=== PATIENT | female | born 1955 | race American Indian/Alaskan Native ===

== ENCOUNTER 2017-07-08 09:46 | Inpatient (IN) | payer OTHER ==
--- NOTE | 2017-07-08 10:21 | XRay Report ---
CHEST XRAY, 2 VIEWS: History: Shortness of breath. Findings: There is mild cardiomegaly. Pulmonary vessels are within normal limits. The lungs are clear and fully expanded. No infiltrate, pleural effusion or pneumothorax. Normal thoracic cage. IMPRESSION: Cardiomegaly. No significant change since 04/08/17.
[2017-07-08 10:22] LABS: Basophils # (Auto) 0.1 K/mm3 (0.0-0.1); Basophils % (Auto) 0.8 % (0.0-1.8); Eosinophils # (Auto) 0.1 K/mm3 (0.0-0.4); Eosinophils % (Auto) 0.9 % (0.0-4.3); Lymphocytes # (Auto) 2.5 K/mm3 (1.2-5.4); Lymphocytes % (Auto) 32.8 % (13.4-35.0); Mean Corpuscular HGB Conc 31 % (30-34); Mean Corpuscular Volume 82 fl (79-97); Monocytes % (Auto) 12.6 % (0.0-7.3); Platelet Count 293 K/mm3 (140-440); Red Cell Distribution Width 18.6 % (13.2-15.2)
[2017-07-08 10:26] LABS: Hematocrit 41.7 % (30.3-42.9); Hemoglobin 12.8 gm/dl (10.1-14.3); Mean Corpuscular Hemoglobin 25 pg (28-32)
[2017-07-08 10:29] LABS: BUN/Creatinine Ratio 29; Blood Urea Nitrogen 20 mg/dL (7-17); Calcium 9.6 mg/dL (8.4-10.2); Hemolysis Index 23
--- NOTE | 2017-07-08 13:17 | Emergency Department Report ---
Blank Doc - Documentation Documentation: Patient is a 61-year-old black female with past medical history of congestive heart failure is presenting with dyspnea with exertion for the past week. Patient states she was in another emergency Department several days ago was given Lasix and felt better on discharge but is now unable to walk without shortness of breath. Patient states even talking to tire her out. Patient is on 20 mg Lasix daily. On brief physical exam patient has some coarse breath sounds bilateral bases there is no lower extremity edema present. The patient will be moved to the main ED for continued care.
--- NOTE | 2017-07-08 13:20 | Emergency Department Report ---
ED Shortness of Breath HPI - General Chief Complaint: Dyspnea/Respdistress Stated Complaint: SOB Time Seen by Provider: 07/08/17 13:07 Source: patient Mode of arrival: Ambulatory Limitations: No Limitations - History of Present Illness Initial Comments: Patient is 61 years old female history of congestive heart failure with ejection fraction of 20%. Patient presented with shortness of breath for the last few days. Patient stated that she went to [facility] ER and she was given IV Lasix and was sent home when her symptoms are not improving. Patient was recently discharged from this hospital when she had a cardiac catheterization which showed normal coronary arteries. Patient currently denying any chest pain, fever. MD Complaint: shortness of breath -: Gradual Severity: moderate Known History Of: congestive heart failure Associated Symptoms: cough - Related Data Home Medications Medication Instructions Recorded Confirmed Last Taken Ergocalciferol [Vitamin D2] 1 cap PO QWEEK 04/09/17 04/09/17 Unknown Ferrous Sulfate [Feosol 325 MG tab] 325 mg PO BID 04/09/17 04/09/17 Unknown Gabapentin [Neurontin] 100 mg PO BID 04/09/17 04/09/17 Unknown ISOSORBIDE MONOnitrate [Imdur ER] 30 mg PO DAILY 04/09/17 04/09/17 Unknown Ibuprofen [Motrin 600 MG tab] 600 mg PO TID PRN 04/09/17 04/09/17 Unknown Metformin HCl 500 mg PO BID 04/09/17 04/09/17 Unknown Simvastatin [Zocor TAB] 20 mg PO QHS 04/09/17 04/09/17 Unknown amLODIPine [Norvasc] 5 mg PO DAILY 04/09/17 04/09/17 Unknown Previous Rx's Medication Instructions Recorded Last Taken Type Carvedilol [Coreg] 3.125 mg PO BID #60 tablet 04/10/17 Unknown Rx Furosemide [Lasix TAB] 20 mg PO QDAY #30 tablet 04/10/17 Unknown Rx Lisinopril [Zestril TAB] 20 mg PO QDAY #30 tablet 04/10/17 Unknown Rx Allergies Allergy/AdvReac Type Severity Reaction Status Date / Time No Known Allergies Allergy Verified 07/08/17 09:48 ED Review of Systems ROS: Stated complaint: SOB Other details as noted in HPI Comment: All other systems reviewed and negative Constitutional: denies: chills, diaphoresis Respiratory: orthopnea, shortness of breath, SOB with exertion, SOB at rest. denies: stridor, wheezing Cardiovascular: dyspnea on exertion, orthopnea, edema, paroxysmal nocturnal dyspnea. denies: chest pain, palpitations, syncope Gastrointestinal: denies: abdominal pain, nausea, vomiting, diarrhea, constipation, hematemesis, melena, hematochezia Neurological: denies: headache, weakness, numbness, paresthesias ED Past Medical Hx - Past Medical History Hx Hypertension: Yes Hx Congestive Heart Failure: Yes Hx Diabetes: Yes Additional medical history: PNEUMONIA, DECREASED HEARING IN RIGHT EAR - Surgical History Additional Surgical History: HYSTERECTOMY - Social History Smoking Status: Never Smoker Substance Use Type: None - Medications Home Medications: Home Medications Medication Instructions Recorded Confirmed Last Taken Type Ergocalciferol [Vitamin D2] 1 cap PO QWEEK 04/09/17 04/09/17 Unknown History Ferrous Sulfate [Feosol 325 MG tab] 325 mg PO BID 04/09/17 04/09/17 Unknown History Gabapentin [Neurontin] 100 mg PO BID 04/09/17 04/09/17 Unknown History ISOSORBIDE MONOnitrate [Imdur ER] 30 mg PO DAILY 04/09/17 04/09/17 Unknown History Ibuprofen [Motrin 600 MG tab] 600 mg PO TID PRN 04/09/17 04/09/17 Unknown History Metformin HCl 500 mg PO BID 04/09/17 04/09/17 Unknown History Simvastatin [Zocor TAB] 20 mg PO QHS 04/09/17 04/09/17 Unknown History amLODIPine [Norvasc] 5 mg PO DAILY 04/09/17 04/09/17 Unknown History Carvedilol [Coreg] 3.125 mg PO BID #60 tablet 04/10/17 Unknown Rx Furosemide [Lasix TAB] 20 mg PO QDAY #30 tablet 04/10/17 Unknown Rx Lisinopril [Zestril TAB] 20 mg PO QDAY #30 tablet 04/10/17 Unknown Rx ED Physical Exam - General Limitations: No Limitations General appearance: alert, anxious - Head Head exam: Present: atraumatic, normocephalic, normal inspection - Eye Eye exam: Present: normal appearance. Absent: PERRL, EOMI - ENT ENT exam: Present: normal exam, normal orophraynx, mucous membranes moist - Neck Neck exam: Present: normal inspection, full ROM. Absent: tenderness, meningismus, lymphadenopathy, thyromegaly - Respiratory Respiratory exam: Present: rales, decreased breath sounds. Absent: respiratory distress, wheezes, rhonchi, stridor, prolonged expiratory - Cardiovascular Cardiovascular Exam: Present: regular rate, normal rhythm, normal heart sounds - GI/Abdominal GI/Abdominal exam: Present: soft, normal bowel sounds. Absent: distended, tenderness, guarding, rebound, rigid, organomegaly, mass, bruit, pulsatile mass , hernia - Extremities Exam Extremities exam: Present: normal inspection, full ROM, normal capillary refill , pedal edema - Back Exam Back exam: Present: normal inspection, full ROM. Absent: tenderness, CVA tenderness (R), CVA tenderness (L), muscle spasm, paraspinal tenderness, vertebral tenderness, rash noted - Neurological Exam Neurological exam: Present: alert, oriented X3, CN II-XII intact, normal gait - Skin Skin exam: Present: warm, intact, normal color ED Course Vital Signs 07/08/17 09:48 Temperature 97.3 F L Pulse Rate 93 H Respiratory 18 Rate Blood Pressure 133/98 O2 Sat by Pulse 100 Oximetry ED Medical Decision Making - Lab Data Result diagrams: 07/08/17 10:06 07/08/17 10:00 - EKG Data -: EKG Interpreted by [facility] EKG shows normal: sinus rhythm Rate: tachycardia - EKG Data Interpretation: no acute changes - Radiology Data Radiology results: report reviewed Referring Physician: CHAD TRENT Patient Name: SAMMY LUEVANO Date of : 1955 Sex: Female Report Date: 2017-07-08 Report Status: Finalized Findings [facility] [address] [place] [address] XRay Report Signed Patient: SAMMY LUEVANO MR#: [id number] : 1955 Acct:[id number] Age/Sex: 61 / F ADM Date: 07/08/17 Loc: ED Attending Dr: Ordering Physician: CHAD TRENT MD Date of Service: 07/08/17 Procedure(s): XR chest routine 2V Accession Number(s): [id number] cc: ED MD TWAN Fluoro Time In Minutes: CHEST XRAY, 2 VIEWS: History: Shortness of breath. Findings: There is mild cardiomegaly. Pulmonary vessels are within normal limits. The lungs are clear and fully expanded. No infiltrate, pleural effusion or pneumothorax. Normal thoracic cage. IMPRESSION: Cardiomegaly. No significant change since 04/08/17. Transcribed By: TTR Dictated By: RODRI GIRALDO JR, MD Electronically Authenticated By: RODRI GIRALDO JR, MD Signed Date/Time: 07/08/17 1012 DD/ 1012 TD/TT: 07/08/17 1012 - Medical Decision Making discuss with Dr Hernández, he agreed to admit to his service. Critical care attestation.: If time is entered above; I have spent that time in minutes in the direct care of this critically ill patient, excluding procedure time. ED Disposition Clinical Impression: CHF exacerbation, Shortness of breath Disposition: -09 OP ADMIT IP TO THIS HOSP Is pt being admited?: Yes Condition: Stable Referrals: TYLER BRISENO MD [Primary Care Provider] - 3-5 Days
[2017-07-08] MEDS ORDERED: LASIX IV ONE (13:21)
--- NOTE | 2017-07-08 13:37 | History and Physical Report ---
History of Present Illness Chief complaint: Its hard to breathe History of present illness: 61 YO Female with Systolic CHF with EF of 20%, HTN, DM, presents to ED for evaluation. Pt states that she has experienced shortness of breath for the last 3 days with worsening symptoms over the past 1 day. Pt acknowledges Orthopnea and PND. Pt denies fever, chills, CP, Palpitations, NVD, Syncope, BRBPR, unintentional weight loss, night sweats, prolonged travel/immobility, unilateral leg swelling, calf pain, hemoptysis, productive cough, skin rash, or recent ill contacts. Pt seen and evaluated in ED and found to have acute hypoxemic respiratory failure, as well as CHF decompensation. Cardiology consulted in ED. Past History Past Medical History: diabetes, heart failure, hypertension Past Surgical History: hysterectomy Social history: single. denies: smoking, alcohol abuse, prescription drug abuse Family history: diabetes, hypertension Medications and Allergies Allergies Allergy/AdvReac Type Severity Reaction Status Date / Time No Known Allergies Allergy Verified 07/08/17 09:48 Home Medications Medication Instructions Recorded Confirmed Last Taken Type Ergocalciferol [Vitamin D2] 1 cap PO QWEEK 04/09/17 07/08/17 07/08/17 History Ferrous Sulfate [Feosol 325 MG tab] 325 mg PO BID 04/09/17 07/08/17 07/08/17 History Gabapentin [Neurontin] 100 mg PO BID 04/09/17 07/08/17 07/08/17 History Ibuprofen [Motrin 600 MG tab] 600 mg PO TID PRN 04/09/17 07/08/17 07/08/17 History Metformin HCl 500 mg PO BID 04/09/17 07/08/17 07/08/17 History Simvastatin [Zocor TAB] 20 mg PO QHS 04/09/17 07/08/17 07/08/17 History Furosemide [Lasix TAB] 20 mg PO QDAY #30 tablet 04/10/17 07/08/17 07/08/17 Rx Lisinopril [Zestril TAB] 20 mg PO QDAY #30 tablet 04/10/17 07/08/17 07/08/17 Rx Review of Systems Constitutional: no weight loss, no weight gain, no fever, no chills Ears, nose, mouth and throat: no ear pain, no ear discharge, no tinnitis, no decreased hearing, no nose pain, no nasal congestion Cardiovascular: orthopnea, shortness of breath, paroxysmal nocturnal dyspnea, no chest pain, no palpitations, no rapid/irregular heart beat, no edema Gastrointestinal: no nausea, no vomiting, no diarrhea, no constipation Genitourinary Female: no pelvic pain, no flank pain, no menorrhagia, no dysuria Rectal: no pain, no incontinence, no bleeding Musculoskeletal: no neck stiffness, no neck pain, no shooting arm pain, no arm numbness/tingling, no low back pain Integumentary: no rash, no pruritis, no redness, no sores Neurological: no transient paralysis, no paralysis, no weakness, no parathesias , no numbness, no tingling Psychiatric: no anxiety, no memory loss, no change in sleep habits, no sleep disturbances, no insomnia, no hypersomnia, no change in appetite Endocrine: no cold intolerance, no heat intolerance, no polyphagia, no excessive thirst, no polydipsia, no polyuria, no nocturia Hematologic/Lymphatic: no easy bruising, no easy bleeding, no lymphadenopathy, no lymphedema Allergic/Immunologic: no urticaria, no allergic rhinitis, no wheezing Exam - Constitutional Vitals: Temp Pulse Resp BP Pulse Ox 97.3 F L 93 H 18 133/98 100 07/08/17 09:48 07/08/17 09:48 07/08/17 09:48 07/08/17 09:48 07/08/17 09:48 General appearance: Present: mild distress - EENT Eyes: Present: PERRL ENT: hearing intact, clear oral mucosa - Neck Neck: Present: supple, normal ROM - Respiratory Respiratory effort: labored Respiratory: bilateral: diminished, wheezing - Cardiovascular Heart Sounds: Present: S1 & S2. Absent: rub, click - Extremities Extremities: pulses symmetrical, No edema Extremity abnormal: edema Peripheral Pulses: within normal limits - Abdominal General gastrointestinal: Present: soft, non-tender, non-distended, normal bowel sounds Female genitourinary: Present: normal - Integumentary Integumentary: Present: clear, warm, dry - Musculoskeletal Musculoskeletal: gait normal, strength equal bilaterally - Psychiatric Psychiatric: appropriate mood/affect, intact judgment & insight - Neurologic Neurologic: CNII-XII intact, moves all extremities Results - Labs CBC & Chem 7: 07/08/17 10:06 07/08/17 10:00 Labs: Abnormal lab results 07/08/17 07/08/17 07/08/17 Range/Units 10:00 10:06 10:06 RBC 5.10 H (3.65-5.03) M/mm3 MCH 25 L (28-32) pg RDW 18.6 H (13.2-15.2) % [place] % (Auto) 12.6 H (0.0-7.3) % [place] # 1.0 H (0.0-0.8) K/mm3 BUN 20 H (7-17) mg/dL Glucose 212 H (65-100) mg/dL NT-Pro-B Natriuret Pep 1779 H (0-900) pg/mL Assessment and Plan - Patient Problems (1) Acute respiratory failure Current Visit: Yes Status: Acute Qualifiers: Respiratory failure complication: hypoxia Qualified Code(s): J96.01 - Acute respiratory failure with hypoxia Plan to address problem: Supplemental oxygen, nebulizer therapy, NIPPV as clinically indicated, (2) CHF exacerbation Current Visit: Yes Status: Acute Qualifiers: Heart failure type: systolic Qualified Code(s): I50.23 - Acute on chronic systolic (congestive) heart failure Plan to address problem: Strict I/O, monitor uop q shift, afterload reduction, diuresis, daily weight, supplemental oxygen, cardiology consulted in ED (3) Diabetes Current Visit: Yes Status: Acute Plan to address problem: AD diet, insulin, accu check (4) HTN (hypertension) Current Visit: Yes Status: Acute Qualifiers: Hypertension type: essential hypertension Qualified Code(s): I10 - Essential (primary) hypertension Plan to address problem: Monitor BP q shift, continue prehospital medication (5) DVT prophylaxis Current Visit: Yes Status: Acute Plan to address problem: SCD to BLE while in bed
[2017-07-08] MEDS ORDERED: TYLENOL PO PRN (13:38)
[2017-07-08] MEDS ORDERED: PROVENTIL IH PRN (13:38)
[2017-07-08] MEDS ORDERED: SODIUM CHLORIDE FLUSH SYRINGE 10 ML IV PRN (13:38)
[2017-07-08] MEDS ORDERED: ZOFRAN IV PRN (13:38)
--- NOTE | 2017-07-08 14:15 | Progress Note ---
Assessment and Plan Shortness of breath Hx of [facility] 03/2017: no significant CAD, ejection fraction 20-25% Diabetes Hypertension Recommendations: Continue medical management for her nonischemic cardiomyopathy. Subjective Date of service: 07/08/17 Interval history: Patient went for a routing visit at [facility]. She complained of shortness of breath, ongoing for several weeks now with minimal exertion. Patient was sent to the ED for further evaluation. Patient denies chest pain and palpitations. There is no lower extremity edema. Patient denies fever. A chest xray reports a cardiomegaly but no interstitial edema. Objective Vital Signs Temp Pulse Resp BP Pulse Ox 07/08/17 09:48 97.3 F L 93 H 18 133/98 100 - Physical Examination General: No Apparent Distress HEENT: Positive: PERRL Cardiac: Positive: Reg Rate and Rhythm Lungs: Positive: Decreased Breath Sounds Neuro: Positive: Grossly Intact Extremities: Absent: edema - Labs and Meds CBC 07/08/17 Range/Units 10:06 WBC 7.7 (4.5-11.0) K/mm3 RBC 5.10 H (3.65-5.03) M/mm3 Hgb 12.8 (10.1-14.3) gm/dl Hct 41.7 (30.3-42.9) % Plt Count 293 (140-440) K/mm3 Lymph # 2.5 (1.2-5.4) K/mm3 [place] # 1.0 H (0.0-0.8) K/mm3 Eos # 0.1 (0.0-0.4) K/mm3 Baso # 0.1 (0.0-0.1) K/mm3 Comprehensive Metabolic Panel 07/08/17 Range/Units 10:00 Sodium 138 (137-145) mmol/L Potassium 3.8 (3.6-5.0) mmol/L Chloride 100.8 (98-107) mmol/L Carbon Dioxide 22 (22-30) mmol/L BUN 20 H (7-17) mg/dL Creatinine 0.7 (0.7-1.2) mg/dL Glucose 212 H (65-100) mg/dL Calcium 9.6 (8.4-10.2) mg/dL
[2017-07-08] MEDS ORDERED: MILK OF MAGNESIA PO PRN (16:06)
[2017-07-08] MEDS: LASIX IV SCH (17:45)
[2017-07-08] MEDS ORDERED: VITAMIN D2 PO SCH (18:35)
[2017-07-08] MEDS ORDERED: NON-FORMULARY (Simvastatin 20 MG) PO SCH (22:00)
[2017-07-08] MEDS: HumaLOG SUB-Q SCH (22:45)
[2017-07-08] MEDS: NEURONTIN PO SCH (22:46)
[2017-07-08] MEDS: PRAVACHOL PO SCH (22:46)
[2017-07-08] MEDS: FEOSOL PO SCH (22:46)
[2017-07-08] MEDS: COREG PO SCH (22:46)
[2017-07-08] MEDS: COLACE PO SCH (22:46)
[2017-07-08] MEDS: SODIUM CHLORIDE FLUSH SYRINGE 10 ML IV SCH (22:47)
[2017-07-09] MEDS: LASIX IV SCH ×2 (05:51→17:38)
--- NOTE | 2017-07-09 08:13 | Progress Note ---
Assessment and Plan Shortness of breath x 2 months [facility]: no significant CAD, ejection fraction 20-25% Recurrent admissions for CHF (this is her 4th admission this year) despite compliance with meds ? insufficient diuresis due to low dose of diuretics at home (she takes 20 mg furosemide once a day) Atrial fibrillation on warfarin INR checked as outpatient Diabetes Hypertension Recommendations: Continue medical management for her nonischemic cardiomyopathy. Check INR Start digoxin 0.125 mg po once a day Upon discharge, increase lasix dose to 40 mg po daily Subjective Date of service: 07/09/17 Principal diagnosis: CHF Interval history: Patient continues to be short of breath She is confused about her meds Objective Vital Signs Temp Pulse Pulse Resp BP BP Pulse Ox 07/09/17 05:03 87 94 07/09/17 05:02 97.8 F 87 20 122/88 95 07/08/17 23:54 98.4 F 92 H 20 135/92 95 07/08/17 22:46 93 H 135/95 07/08/17 22:35 92 H 20 95 07/08/17 22:00 97 07/08/17 19:46 94 H 93 07/08/17 19:45 98.3 F 93 H 18 135/95 95 07/08/17 19:41 98.3 F 92 H 18 135/95 99 07/08/17 19:22 92 H 07/08/17 16:21 97.3 F L 89 20 125/76 100 07/08/17 16:00 97.3 F L 89 20 125/76 98 07/08/17 15:15 113/72 99 07/08/17 15:10 87 22 128/84 98 07/08/17 15:00 94 H 18 113/72 07/08/17 14:50 88 28 H 113/72 98 07/08/17 14:40 87 19 138/90 100 07/08/17 14:30 90 16 138/90 99 07/08/17 14:20 87 22 98 07/08/17 14:10 90 13 125/90 99 07/08/17 14:00 91 H 29 H 98 07/08/17 13:50 98.1 F 92 H 19 130/90 99 07/08/17 13:46 93 H 17 99 07/08/17 09:48 97.3 F L 93 H 18 133/98 100 - Physical Examination General: No Apparent Distress HEENT: Positive: PERRL Neck: Positive: neck supple Cardiac: Positive: irregularly irregular Lungs: Positive: Normal Exam Neuro: Positive: Grossly Intact Extremities: Absent: edema - Labs and Meds CBC 07/08/17 Range/Units 10:06 WBC 7.7 (4.5-11.0) K/mm3 RBC 5.10 H (3.65-5.03) M/mm3 Hgb 12.8 (10.1-14.3) gm/dl Hct 41.7 (30.3-42.9) % Plt Count 293 (140-440) K/mm3 Lymph # 2.5 (1.2-5.4) K/mm3 [place] # 1.0 H (0.0-0.8) K/mm3 Eos # 0.1 (0.0-0.4) K/mm3 Baso # 0.1 (0.0-0.1) K/mm3 Comprehensive Metabolic Panel 07/08/17 Range/Units 10:00 Sodium 138 (137-145) mmol/L Potassium 3.8 (3.6-5.0) mmol/L Chloride 100.8 (98-107) mmol/L Carbon Dioxide 22 (22-30) mmol/L BUN 20 H (7-17) mg/dL Creatinine 0.7 (0.7-1.2) mg/dL Glucose 212 H (65-100) mg/dL Calcium 9.6 (8.4-10.2) mg/dL
[2017-07-09] MEDS: HumaLOG SUB-Q SCH ×4 (08:53→23:27)
[2017-07-09 09:10] LABS: INR 1.58 (0.87-1.13)
[2017-07-09] MEDS: COLACE PO SCH ×2 (10:29→23:27)
[2017-07-09] MEDS: FEOSOL PO SCH ×2 (10:29→21:36)
[2017-07-09] MEDS: NEURONTIN PO SCH ×2 (10:29→21:37)
[2017-07-09] MEDS: IMDUR PO SCH (10:34)
[2017-07-09] MEDS: COREG PO SCH ×2 (10:34→23:01)
[2017-07-09] MEDS: NORVASC PO SCH (10:34)
[2017-07-09] MEDS: SODIUM CHLORIDE FLUSH SYRINGE 10 ML IV SCH ×2 (10:36→21:39)
[2017-07-09] MEDS: ZESTRIL PO SCH (11:38)
[2017-07-09] MEDS ORDERED: PNEUMOVAX 23 IM ONE (12:00)
--- NOTE | 2017-07-09 12:23 | Progress Note ---
Assessment and Plan Assessment and plan: Acute hypoxic respiratory failure. Etiology secondary to systolic heart failure exacerbation. Continue O2 and BiPAP as clinically indicated. Acute systolic heart failure exacerbation. [facility] 03/2017: no significant CAD, ejection fraction 20-25%. Continue medical management for her nonischemic cardiomyopathy. Cardiology started digoxin 0.125 mg daily and Lasix increased to 40 mg daily Nonischemic cardiomyopathy. As above. Atrial fibrillation. Continue anticoagulation with Coumadin. Diabetes mellitus type 2. Continue Accu-Cheks and sliding scale insulin. Hypertension. Continue antihypertensive medications. History Interval history: No new complaints overnight. Hospitalist Physical - Constitutional Vitals: Temp Pulse Resp BP Pulse Ox 97.5 F L 85 18 115/75 97 07/09/17 08:01 07/09/17 10:34 07/09/17 08:01 07/09/17 11:38 07/09/17 09:47 General appearance: Present: no acute distress - EENT Eyes: Present: PERRL, EOM intact ENT: hearing intact, clear oral mucosa, dentition normal - Neck Neck: Present: supple, normal ROM - Respiratory Respiratory effort: normal Respiratory: bilateral: CTA - Cardiovascular Rhythm: regular Heart Sounds: Present: S1 & S2. Absent: gallop, rub - Extremities Extremities: no ischemia, No edema, Full ROM - Abdominal General gastrointestinal: soft, non-tender, non-distended, normal bowel sounds - Integumentary Integumentary: Present: clear, warm, dry - Neurologic Neurologic: CNII-XII intact, moves all extremities Results - Labs CBC & Chem 7: 07/08/17 10:06 07/08/17 10:00 Labs: Laboratory Last Values WBC 7.7 K/mm3 (4.5-11.0) 07/08/17 10:06 RBC 5.10 M/mm3 (3.65-5.03) H 07/08/17 10:06 Hgb 12.8 gm/dl (10.1-14.3) 07/08/17 10:06 Hct 41.7 % (30.3-42.9) 07/08/17 10:06 MCV 82 fl (79-97) 07/08/17 10:06 MCH 25 pg (28-32) L 07/08/17 10:06 MCHC 31 % (30-34) 07/08/17 10:06 RDW 18.6 % (13.2-15.2) H 07/08/17 10:06 Plt Count 293 K/mm3 (140-440) 07/08/17 10:06 Lymph % (Auto) 32.8 % (13.4-35.0) 07/08/17 10:06 [place] % (Auto) 12.6 % (0.0-7.3) H 07/08/17 10:06 Eos % (Auto) 0.9 % (0.0-4.3) 07/08/17 10:06 Baso % (Auto) 0.8 % (0.0-1.8) 07/08/17 10:06 Lymph # 2.5 K/mm3 (1.2-5.4) 07/08/17 10:06 [place] # 1.0 K/mm3 (0.0-0.8) H 07/08/17 10:06 Eos # 0.1 K/mm3 (0.0-0.4) 07/08/17 10:06 Baso # 0.1 K/mm3 (0.0-0.1) 07/08/17 10:06 Seg Neutrophils % 52.9 % (40.0-70.0) 07/08/17 10:06 Seg Neutrophils # 4.1 K/mm3 (1.8-7.7) 07/08/17 10:06 PT 19.8 Sec. (12.2-14.9) H 07/09/17 08:40 INR 1.58 (0.87-1.13) H 07/09/17 08:40 Sodium 138 mmol/L (137-145) 07/08/17 10:00 Potassium 3.8 mmol/L (3.6-5.0) 07/08/17 10:00 Chloride 100.8 mmol/L (98-107) 07/08/17 10:00 Carbon Dioxide 22 mmol/L (22-30) 07/08/17 10:00 Anion Gap 19 mmol/L 07/08/17 10:00 BUN 20 mg/dL (7-17) H 07/08/17 10:00 Creatinine 0.7 mg/dL (0.7-1.2) 07/08/17 10:00 Estimated GFR > 60 ml/min 07/08/17 10:00 BUN/Creatinine Ratio 29 % 07/08/17 10:00 Glucose 212 mg/dL (65-100) H 07/08/17 10:00 POC Glucose 140 (70-105) H 07/09/17 05:13 Calcium 9.6 mg/dL (8.4-10.2) 07/08/17 10:00 Troponin T < 0.010 ng/mL (0.00-0.029) 07/08/17 13:32 NT-Pro-B Natriuret Pep 1779 pg/mL (0-900) H 07/08/17 10:06
[2017-07-09] MEDS: LANOXIN PO SCH (17:39)
[2017-07-09] MEDS: PRAVACHOL PO SCH (21:37)
[2017-07-10] MEDS: LASIX IV SCH ×2 (05:55→18:05)
[2017-07-10 06:58] LABS: Basophils # (Auto) 0.1 K/mm3 (0.0-0.1); Basophils % (Auto) 0.7 % (0.0-1.8); Eosinophils # (Auto) 0.2 K/mm3 (0.0-0.4); Eosinophils % (Auto) 2.7 % (0.0-4.3); Hemoglobin 12.2 gm/dl (10.1-14.3); Lymphocytes % (Auto) 24.2 % (13.4-35.0); Mean Corpuscular HGB Conc 31 % (30-34); Mean Corpuscular Volume 82 fl (79-97); Monocytes # (Auto) 0.7 K/mm3 (0.0-0.8); Monocytes % (Auto) 9.1 % (0.0-7.3); Platelet Count 322 K/mm3 (140-440); Red Blood Count 4.79 M/mm3 (3.65-5.03); Red Cell Distribution Width 18.9 % (13.2-15.2)
[2017-07-10 07:00] LABS: Mean Corpuscular Hemoglobin 26 pg (28-32)
[2017-07-10 07:22] LABS: BUN/Creatinine Ratio 30; Blood Urea Nitrogen 18 mg/dL (7-17); Calcium 8.6 mg/dL (8.4-10.2); Hemolysis Index 11
[2017-07-10] MEDS: HumaLOG SUB-Q SCH ×4 (08:38→21:26)
[2017-07-10] MEDS: ZESTRIL PO SCH (09:03)
[2017-07-10] MEDS: COLACE PO SCH ×2 (09:04→21:25)
[2017-07-10] MEDS: COREG PO SCH ×2 (09:04→21:25)
[2017-07-10] MEDS: NEURONTIN PO SCH ×2 (09:04→21:25)
[2017-07-10] MEDS: IMDUR PO SCH (09:04)
[2017-07-10] MEDS: SODIUM CHLORIDE FLUSH SYRINGE 10 ML IV SCH ×2 (09:05→21:25)
[2017-07-10] MEDS: FEOSOL PO SCH ×2 (09:05→21:26)
[2017-07-10] MEDS: NORVASC PO SCH (09:13)
--- NOTE | 2017-07-10 11:19 | Progress Note ---
Assessment and Plan Shortness of breath Hx of [facility] 03/2017: no significant CAD, ejection fraction 20-25% Diabetes Hypertension Paroxysmal Atrial fibrillation on Warfarin as an outpatient on digoxin for suppression Recommendations: Continue medical management for her nonischemic cardiomyopathy. Continue medical therapy for paroxysmal afib. Restart warfarin therapy. Upon discharge, increase lasix dose to 40 mg po daily. Patient advised to keep her appt as previously scheduled. Subjective Date of service: 07/10/17 Principal diagnosis: CHF Interval history: Patient reports shortness of breath at times. Complains of not sleeping. Sinus rhythm on telemetry. Objective Vital Signs Temp Pulse Resp BP BP Pulse Ox 07/10/17 09:13 78 127/81 07/10/17 09:04 78 127/81 07/10/17 09:03 78 127/81 07/10/17 04:26 62 93 07/10/17 04:25 97.7 F 83 20 100/65 97 07/10/17 03:44 79 07/09/17 23:18 79 92 07/09/17 23:17 97.8 F 82 20 92/56 93 07/09/17 23:01 80 96/61 07/09/17 21:29 98 07/09/17 19:16 97.6 F 80 96/61 97 07/09/17 19:15 97.6 F 78 20 96/61 98 07/09/17 17:39 75 171/75 07/09/17 11:38 115/75 - Physical Examination General: No Apparent Distress HEENT: Positive: PERRL Cardiac: Positive: Reg Rate and Rhythm Lungs: Positive: Decreased Breath Sounds Neuro: Positive: Grossly Intact Extremities: Absent: edema - Labs and Meds CBC 07/10/17 Range/Units 06:14 WBC 8.1 (4.5-11.0) K/mm3 RBC 4.79 (3.65-5.03) M/mm3 Hgb 12.2 (10.1-14.3) gm/dl Hct 39.0 (30.3-42.9) % Plt Count 322 (140-440) K/mm3 Lymph # 2.0 (1.2-5.4) K/mm3 [place] # 0.7 (0.0-0.8) K/mm3 Eos # 0.2 (0.0-0.4) K/mm3 Baso # 0.1 (0.0-0.1) K/mm3 Comprehensive Metabolic Panel 07/10/17 Range/Units 06:14 Sodium 139 (137-145) mmol/L Potassium 3.5 L (3.6-5.0) mmol/L Chloride 96.3 L (98-107) mmol/L Carbon Dioxide 28 (22-30) mmol/L BUN 18 H (7-17) mg/dL Creatinine 0.6 L (0.7-1.2) mg/dL Glucose 184 H (65-100) mg/dL Calcium 8.6 (8.4-10.2) mg/dL
--- NOTE | 2017-07-10 11:30 | Progress Note ---
Assessment and Plan Assessment and plan: Acute hypoxic respiratory failure. Etiology secondary to systolic heart failure exacerbation. Continue O2 and BiPAP as clinically indicated. Orthostasis. Etiology likely secondary to increase and change in medications. I will discussed with cardiology medication profile. We will discontinue ImDur and change metoprolol to Coreg Acute systolic heart failure exacerbation. [facility] 03/2017: no significant CAD, ejection fraction 20-25%. Continue medical management for her nonischemic cardiomyopathy. Cardiology started digoxin 0.125 mg daily and Lasix increased to 40 mg daily Nonischemic cardiomyopathy. As above. Atrial fibrillation. Continue anticoagulation with Coumadin. Diabetes mellitus type 2. Continue Accu-Cheks and sliding scale insulin. Hypertension. Continue antihypertensive medications. Disposition. Discharge in a.m. History Interval history: No new complaints overnight. Patient complains of orthostasis this morning. She reports dizziness with ambulating in her room. Hospitalist Physical - Constitutional Vitals: Temp Pulse Resp BP Pulse Ox 97.7 F 78 20 127/81 93 07/10/17 04:25 07/10/17 09:13 07/10/17 04:25 07/10/17 09:13 07/10/17 04:26 General appearance: Present: no acute distress - EENT Eyes: Present: PERRL, EOM intact ENT: hearing intact, clear oral mucosa, dentition normal - Neck Neck: Present: supple, normal ROM - Respiratory Respiratory effort: normal Respiratory: bilateral: CTA - Cardiovascular Rhythm: regular Heart Sounds: Present: S1 & S2. Absent: gallop, rub - Extremities Extremities: no ischemia, No edema, Full ROM - Abdominal General gastrointestinal: soft, non-tender, non-distended, normal bowel sounds - Integumentary Integumentary: Present: clear, warm, dry - Neurologic Neurologic: CNII-XII intact, moves all extremities Results - Labs CBC & Chem 7: 07/10/17 06:14 07/10/17 06:14 Labs: Laboratory Last Values WBC 8.1 K/mm3 (4.5-11.0) 07/10/17 06:14 RBC 4.79 M/mm3 (3.65-5.03) 07/10/17 06:14 Hgb 12.2 gm/dl (10.1-14.3) 07/10/17 06:14 Hct 39.0 % (30.3-42.9) 07/10/17 06:14 MCV 82 fl (79-97) 07/10/17 06:14 MCH 26 pg (28-32) L 07/10/17 06:14 MCHC 31 % (30-34) 07/10/17 06:14 RDW 18.9 % (13.2-15.2) H 07/10/17 06:14 Plt Count 322 K/mm3 (140-440) 07/10/17 06:14 Lymph % (Auto) 24.2 % (13.4-35.0) 07/10/17 06:14 Lynn % (Auto) 9.1 % (0.0-7.3) H 07/10/17 06:14 Eos % (Auto) 2.7 % (0.0-4.3) 07/10/17 06:14 Baso % (Auto) 0.7 % (0.0-1.8) 07/10/17 06:14 Lymph # 2.0 K/mm3 (1.2-5.4) 07/10/17 06:14 Lynn # 0.7 K/mm3 (0.0-0.8) 07/10/17 06:14 Eos # 0.2 K/mm3 (0.0-0.4) 07/10/17 06:14 Baso # 0.1 K/mm3 (0.0-0.1) 07/10/17 06:14 Seg Neutrophils % 63.3 % (40.0-70.0) 07/10/17 06:14 Seg Neutrophils # 5.1 K/mm3 (1.8-7.7) 07/10/17 06:14 PT 19.8 Sec. (12.2-14.9) H 07/09/17 08:40 INR 1.58 (0.87-1.13) H 07/09/17 08:40 Sodium 139 mmol/L (137-145) 07/10/17 06:14 Potassium 3.5 mmol/L (3.6-5.0) L 07/10/17 06:14 Chloride 96.3 mmol/L (98-107) L 07/10/17 06:14 Carbon Dioxide 28 mmol/L (22-30) 07/10/17 06:14 Anion Gap 18 mmol/L 07/10/17 06:14 BUN 18 mg/dL (7-17) H 07/10/17 06:14 Creatinine 0.6 mg/dL (0.7-1.2) L 07/10/17 06:14 Estimated GFR > 60 ml/min 07/10/17 06:14 BUN/Creatinine Ratio 30 % 07/10/17 06:14 Glucose 184 mg/dL (65-100) H 07/10/17 06:14 POC Glucose 195 (70-105) H 07/10/17 06:18 Calcium 8.6 mg/dL (8.4-10.2) 07/10/17 06:14 Troponin T < 0.010 ng/mL (0.00-0.029) 07/08/17 13:32 NT-Pro-B Natriuret Pep 1779 pg/mL (0-900) H 07/08/17 10:06
[2017-07-10] MEDS ORDERED: PNEUMOVAX 23 IM ONE (12:00)
[2017-07-10] MEDS: LANOXIN PO SCH (18:11)
[2017-07-10] MEDS: PRAVACHOL PO SCH (21:25)
[2017-07-11] MEDS: LASIX IV SCH (05:45)
[2017-07-11 07:54] LABS: Basophils # (Auto) 0.1 K/mm3 (0.0-0.1); Eosinophils % (Auto) 2.4 % (0.0-4.3); Monocytes % (Auto) 11.5 % (0.0-7.3)
--- NOTE | 2017-07-11 07:55 | Discharge Summary ---
Providers - Providers Date of Admission: 07/08/17 13:39 Date of discharge: 07/11/17 Attending physician: DESTINEE HERNANDEZ 07/08/17 13:43 Consult to Physician [CONS] Routine Comment: JACQUE NOTIFIED [id number] Consulting Provider: LISET SIBLEY Physician Instructions: Reason For Exam: chf Primary care physician: TYLER BRISENO Hospitalization Reason for admission: chf Condition: Stable Hospital course: 61 YO Female with Systolic CHF with EF of 20%, HTN, DM who presented to ED for complaints of shortness of breath for the last 3 days [employer] and with worsening symptoms over the past 1 day [employer]. Pt acknowledged Orthopnea and PND. The patient was admitted with a diagnosis of acute hypoxemic respiratory failure and acute systolic heart failure exacerbation. The patient was seen by cardiology in consultation and had medication adjustment with addition of Imdur , digoxin and increased Lasix from 20 mg daily to 40 mg daily. After the change in medication, patient experience orthostasis during the hospital stay and had indoor discontinued. Cardiology recommended patient be discharged on Coreg, digoxin and Lasix. Follow-up as an outpatient. Dedicated discharge time 32 minutes. Disposition: DC-01 TO HOME OR SELFCARE Time spent for discharge: 32 - Discharge Diagnoses (1) Acute respiratory failure Status: Acute Qualifiers: Respiratory failure complication: hypoxia Qualified Code(s): J96.01 - Acute respiratory failure with hypoxia (2) CHF exacerbation Status: Acute Qualifiers: Heart failure type: systolic Qualified Code(s): I50.23 - Acute on chronic systolic (congestive) heart failure (3) Diabetes Status: Acute (4) HTN (hypertension) Status: Acute Qualifiers: Hypertension type: essential hypertension Qualified Code(s): I10 - Essential (primary) hypertension Core Measure Documentation - Palliative Care Palliative Care/ Comfort Measures: Not Applicable - Core Measures Any of the following diagnoses?: heart failure - Heart Failure Discharge Requirements MARCUS/ARB for LVSD if EF <40%: Yes Beta duke at discharge: Yes Exam - Constitutional Vitals: Temp Pulse Resp BP Pulse Ox 98.3 F 85 18 105/72 99 07/11/17 04:36 07/11/17 04:36 07/11/17 04:36 07/11/17 04:36 07/11/17 04:36 General appearance: Present: no acute distress, well-nourished - EENT Eyes: Present: PERRL ENT: hearing intact, clear oral mucosa - Neck Neck: Present: supple, normal ROM - Respiratory Respiratory effort: normal Respiratory: bilateral: CTA - Cardiovascular Heart Sounds: Present: S1 & S2. Absent: rub, click - Extremities Extremities: pulses symmetrical, No edema Peripheral Pulses: within normal limits - Abdominal General gastrointestinal: Present: soft, non-tender, non-distended, normal bowel sounds Female genitourinary: Present: normal - Integumentary Integumentary: Present: clear, warm, dry - Musculoskeletal Musculoskeletal: gait normal, strength equal bilaterally - Psychiatric Psychiatric: appropriate mood/affect, intact judgment & insight - Neurologic Neurologic: CNII-XII intact, moves all extremities Plan Activity: no restrictions Weight Bearing Status: Full Weight Bearing Diet: low fat, low cholesterol, low salt, diabetic Follow up with: TYLER BRISENO MD [Primary Care Provider] - 3-5 Days LISET SIBLEY MD [Staff Physician] - 7 Days Prescriptions: amLODIPine [Norvasc] 5 mg PO DAILY #30 tablet Carvedilol [Coreg] 3.125 mg PO BID #60 tablet Digoxin [Lanoxin] 0.125 mg PO DAILY@1700 #30 tablet Ferrous Sulfate [Feosol 325 MG tab] 325 mg PO BID #60 tablet Gabapentin [Neurontin] 100 mg PO BID #60 capsule Lisinopril [Zestril TAB] 20 mg PO QDAY #30 tablet Simvastatin [Zocor TAB] 20 mg PO QHS #30 tablet
[2017-07-11 08:10] LABS: Basophils % (Auto) 0.8 % (0.0-1.8); Hematocrit 41.2 % (30.3-42.9); Hemoglobin 13.3 gm/dl (10.1-14.3); Lymphocytes % (Auto) 26.3 % (13.4-35.0); Mean Corpuscular HGB Conc 32 % (30-34); Mean Corpuscular Hemoglobin 26 pg (28-32); Mean Corpuscular Volume 80 fl (79-97); Mean Platelet Volume 7.9 fl (6-12); Platelet Count 332 K/mm3 (140-440); Red Blood Count 5.14 M/mm3 (3.65-5.03); Red Cell Distribution Width 18.9 % (13.2-15.2)
[2017-07-11 08:11] LABS: Eosinophils # (Auto) 0.3 K/mm3 (0.0-0.4); Lymphocytes # (Auto) 2.4 K/mm3 (1.2-5.4)
[2017-07-11 08:13] LABS: BUN/Creatinine Ratio 21; Blood Urea Nitrogen 15 mg/dL (7-17); Calcium 9.2 mg/dL (8.4-10.2); Hemolysis Index 29
[2017-07-11] MEDS: HumaLOG SUB-Q SCH ×2 (08:30→12:28)
[2017-07-11] MEDS: SODIUM CHLORIDE FLUSH SYRINGE 10 ML IV SCH (09:55)
[2017-07-11] MEDS: FEOSOL PO SCH (09:55)
[2017-07-11] MEDS: COLACE PO SCH (09:55)
[2017-07-11] MEDS: ZESTRIL PO SCH (09:55)
[2017-07-11] MEDS: NEURONTIN PO SCH (09:55)
[2017-07-11] MEDS: COREG PO SCH (09:55)
[2017-07-11] MEDS: NORVASC PO SCH (09:55)
[2017-07-11 10:30] VITALS: BP 117/80
--- NOTE | 2017-07-11 11:52 | Progress Note ---
Assessment and Plan Shortness of breath x 2 months Hx of [facility] 03/2017: no significant CAD, ejection fraction 20-25% Diabetes Hypertension Paroxysmal Atrial fibrillation on Warfarin as an outpatient on digoxin for suppression Recommendations: Continue medical management for her nonischemic cardiomyopathy. Continue medical therapy for paroxysmal afib. Restart warfarin therapy. Upon discharge, increase lasix dose to 40 mg po daily. Patient advised to keep her appt as previously scheduled. Subjective Date of service: 07/11/17 Principal diagnosis: CHF Interval history: Patient reports she is feeling better. Sinus rhythm on telemetry. Objective Vital Signs Temp Pulse Resp BP Pulse Ox 07/11/17 09:02 98.3 F 18 117/80 07/11/17 04:36 98.3 F 85 18 105/72 99 07/10/17 23:55 98.2 F 78 18 89/52 97 07/10/17 22:00 85 07/10/17 19:50 98.3 F 85 18 102/67 97 07/10/17 18:11 77 108/72 07/10/17 16:45 97.8 F 83 14 108/72 98 07/10/17 12:16 98.6 F 82 18 91/61 98 - Physical Examination General: No Apparent Distress HEENT: Positive: PERRL Cardiac: Positive: Reg Rate and Rhythm Lungs: Positive: Decreased Breath Sounds Neuro: Positive: Grossly Intact Extremities: Absent: edema - Labs and Meds CBC 07/11/17 Range/Units 07:11 WBC 9.0 (4.5-11.0) K/mm3 RBC 5.14 H (3.65-5.03) M/mm3 Hgb 13.3 (10.1-14.3) gm/dl Hct 41.2 (30.3-42.9) % Plt Count 332 (140-440) K/mm3 Lymph # 2.4 (1.2-5.4) K/mm3 [place] # 1.0 H (0.0-0.8) K/mm3 Eos # 0.3 (0.0-0.4) K/mm3 Baso # 0.1 (0.0-0.1) K/mm3 Comprehensive Metabolic Panel 07/11/17 Range/Units 07:11 Sodium 139 (137-145) mmol/L Potassium 4.2 (3.6-5.0) mmol/L Chloride 97.5 L (98-107) mmol/L Carbon Dioxide 29 (22-30) mmol/L BUN 15 (7-17) mg/dL Creatinine 0.7 (0.7-1.2) mg/dL Glucose 183 H (65-100) mg/dL Calcium 9.2 (8.4-10.2) mg/dL
[2017-07-15] MEDS ORDERED: VITAMIN D2 PO SCH (10:00)
== END 2017-07-11 18:29 | disposition home or self-care (01) | DRG 291 ==
LOC: EDBD 09:46 → ED 09:46 → 4A 13:39
PROVIDERS: ADMIT Internal Medicine; ATTEND Hospitalist
PROC: 3E0234Z Introduction of Serum, Toxoid and Vaccine into Muscle, Percutaneous Approach (ICD-10-PCS; principal; 2017-07-09)
DX: I11.0 Hypertensive heart disease with heart failure (principal); J96.01 Acute respiratory failure with hypoxia; I50.23 Acute on chronic systolic (congestive) heart failure; E11.9 Type 2 diabetes mellitus without complications; I42.8 Other cardiomyopathies; I48.91 Unspecified atrial fibrillation; Z23 Encounter for immunization; Z79.899 Other long term (current) drug therapy; Z90.710 Acquired absence of both cervix and uterus; Z87.01 Personal history of pneumonia (recurrent); Z82.49 Family history of ischemic heart disease and other diseases of the circulatory system; Z83.3 Family history of diabetes mellitus; Z79.01 Long term (current) use of anticoagulants
CPT/HCPCS: 36415; 71046; 80048; 82962; 83880; 84484; 85025; 85610; 90732; 93005; 93010; 96374; A9270-GY; J1815; J1940; J2405

== ENCOUNTER 2017-08-07 11:17 | Observation (INO) | payer OTHER ==
--- NOTE | 2017-08-07 12:43 | Anesthesia Consultation ---
Anesthesia Consult and Med Hx Date of service: 08/07/17 - Airway Anesthetic Teeth Evaluation: Dentures ROM Head & Neck: Adequate Mental/Hyoid Distance: Adequate Mallampati Class: Class II Intubation Access Assessment: Probably Good - Pulmonary Exam CTA: Yes - Cardiac Exam Cardiac Exam: RRR - Pre-Operative Health Status ASA Pre-Surgery Classification: ASA3 Proposed Anesthetic Plan: General - Pulmonary Hx Smoking: Yes (Quit 7 years ago.) - Cardiovascular System Hx Hypertension: Yes - Central Nervous System Hx Psychiatric Problems: No - Endocrine Hx Non-Insulin Dependent Diabetes: Yes - Additional Comments Anesthesia Medical History Comments: Pt. admits to "weak heart" (unable to further explain). NAC.
--- NOTE | 2017-08-07 12:44 | Anesthesia Day of Surgery ---
Anesthesia Day of Surgery - Day of Surgery Patient Examined: Yes Patient H&P Reviewed: Yes Patient is NPO: Yes
[2017-08-07 12:48] LABS: Basophils # (Auto) 0.1 K/mm3 (0.0-0.1); Basophils % (Auto) 0.8 % (0.0-1.8); Eosinophils # (Auto) 0.2 K/mm3 (0.0-0.4); Eosinophils % (Auto) 2.6 % (0.0-4.3); Hematocrit 45.1 % (30.3-42.9); Hemoglobin 14.9 gm/dl (10.1-14.3); Lymphocytes # (Auto) 2.9 K/mm3 (1.2-5.4); Lymphocytes % (Auto) 38.9 % (13.4-35.0); Mean Corpuscular HGB Conc 33 % (30-34); Mean Corpuscular Hemoglobin 26 pg (28-32); Mean Corpuscular Volume 79 fl (79-97); Monocytes # (Auto) 0.9 K/mm3 (0.0-0.8); Monocytes % (Auto) 12.7 % (0.0-7.3); Platelet Count 213 K/mm3 (140-440); Red Blood Count 5.69 M/mm3 (3.65-5.03); Red Cell Distribution Width 18.2 % (13.2-15.2)
[2017-08-07] MEDS ORDERED: NACL 0.9% 500 ML IR ONE (12:48)
[2017-08-07] MEDS ORDERED: XYLOCAINE 1% 20 mL ONE (12:48)
[2017-08-07] MEDS ORDERED: ANCEF/STERILE WATER 2 GM/20 ML 2 GM/20 ML SYRINGE IV ONE (12:48)
[2017-08-07] MEDS ORDERED: MARCAINE 0.5% 60 ML INFILTRATI ONE (12:48)
[2017-08-07] MEDS ORDERED: NACL 0.9% 500 ML 500 ML ONE (12:52)
[2017-08-07] MEDS ORDERED: DIPRIVAN 10 MG/ML 1,000 MG/100 ML BOTTLE IV ONE (12:53)
[2017-08-07] MEDS ORDERED: VERSED IV ONE (12:54)
[2017-08-07] MEDS ORDERED: DILAUDID ONE (12:54)
[2017-08-07] MEDS: NACL 0.45% 1000 ML 1,000 ML IV SCH ×2 (12:55→13:45)
[2017-08-07 12:59] LABS: INR 0.97 (0.87-1.13)
[2017-08-07 13:00] LABS: Partial Thromboplastin Time 30.3 Sec. (24.2-36.6)
[2017-08-07 13:05] LABS: BUN/Creatinine Ratio TNR; Blood Urea Nitrogen TNR mg/dL (7-17)
[2017-08-07 13:06] LABS: Calcium TNR mg/dL (8.4-10.2); Hemolysis Index TNR
[2017-08-07] MEDS ORDERED: VANCOMYCIN VIAL 1,000 MG in NACL 0.9% 1,000 ML IRRIGATION ONE (13:45)
[2017-08-07] MEDS ORDERED: NACL 0.9% 1,000 ML, VANCOMYCIN VIAL 1,000 MG IR ONE (13:45)
[2017-08-07 14:04] LABS: BUN/Creatinine Ratio 33; Blood Urea Nitrogen 20 mg/dL (7-17); Calcium 10.3 mg/dL (8.4-10.2); Hemolysis Index 42
[2017-08-07] MEDS ORDERED: NORCO 5/325 PO PRN (15:35)
[2017-08-07] MEDS ORDERED: ANCEF/NS 1 GM/50 ML 1 GM/50 ML BAG IV SCH (16:00)
--- NOTE | 2017-08-07 16:08 | Event Note ---
Date: 08/07/17 Pt underwent single chamber ICD without apparent complications. Recommend: 1. OK to discharge in AM after device interrogation with home medications and prescription for short term pain medication (10 tablets of percocet). Adam Claudio MD
--- NOTE | 2017-08-07 16:30 | XRay Report ---
FINAL REPORT EXAM: XR CHEST 1V AP HISTORY: Pacemaker Postop TECHNIQUE: upright single view chest PRIORS: None. FINDINGS: Cardiac and mediastinal contours are unremarkable. No focal pulmonary infiltrate is identified. No pleural fluid collection seen. Pulmonary vasculature is unremarkable. Pacemaker is present. Lead wires are intact. IMPRESSION: Pacemaker. No acute abnormality.
[2017-08-07] MEDS: ceFAZolin 1 GM in NACL 0.9% 20 ML IV SCH (21:05)
[2017-08-07] MEDS ORDERED: LASIX PO SCH (22:00)
[2017-08-07] MEDS ORDERED: PRAVACHOL PO SCH (22:00)
[2017-08-07] MEDS ORDERED: NON-FORMULARY (Simvastatin 20 MG) PO SCH (22:00)
[2017-08-07] MEDS: LASIX PO SCH (22:53)
[2017-08-07] MEDS: NEURONTIN PO SCH (22:53)
[2017-08-07] MEDS: COREG PO SCH (22:54)
[2017-08-08] MEDS: ceFAZolin 1 GM in NACL 0.9% 20 ML IV SCH (04:00)
[2017-08-08] MEDS: LASIX PO SCH (05:36)
--- NOTE | 2017-08-08 09:34 | Short Stay Summary ---
Short Stay Documentation Date of service: 08/08/17 - History H&P: obtained from office - Allergies and Medications Current Medications: Allergies No Known Allergies Allergy (Verified 07/08/17 09:48) Home Medications Medication Instructions Recorded Confirmed Last Taken Type Ergocalciferol [Vitamin D2] 1 cap PO QWEEK 04/09/17 08/07/17 08/05/17 History Metformin HCl 500 mg PO BID 04/09/17 08/07/17 08/06/17 History Carvedilol [Coreg] 3.125 mg PO BID #60 tablet 07/11/17 08/07/17 08/07/17 08:00 Rx Ferrous Sulfate [Feosol 325 MG tab] 325 mg PO BID #60 tablet 07/11/17 08/07/17 08/07/17 08:00 Rx Gabapentin [Neurontin] 100 mg PO BID #60 capsule 07/11/17 08/07/17 08/07/17 08: 00 Rx Lisinopril [Zestril TAB] 20 mg PO QDAY #30 tablet 07/11/17 08/07/17 08/07/17 08: 00 Rx Simvastatin [Zocor TAB] 20 mg PO QHS #30 tablet 07/11/17 08/07/17 08/06/17 Rx amLODIPine [Norvasc] 5 mg PO DAILY #30 tablet 07/11/17 08/07/17 08/07/17 08:00 Rx Digoxin [Lanoxin] 0.125 mg PO DAILY 08/07/17 08/07/17 08/07/17 08:00 History Furosemide [Lasix] 20 mg PO BID 08/07/17 08/07/17 08/07/17 08:00 History Spironolactone [Aldactone] 25 mg PO QDAY 08/07/17 08/07/17 08/07/17 08:00 History Warfarin Sodium [Jantoven] 5 mg PO DAILY 08/07/17 08/07/17 08/01/17 History Active Medications Acetaminophen/Hydrocodone Bitart ([place] 5/325) 1 each PO Q6H PRN PRN Reason: Pain, Moderate (4-6) Amlodipine Besylate (Norvasc) 5 mg PO DAILY [facility] Carvedilol (Coreg) 3.125 mg PO BID [facility] Last Admin: 08/07/17 22:54 Dose: 3.125 mg Furosemide (Lasix) 20 mg PO BID@0600,1800 [facility] Last Admin: 08/08/17 05:36 Dose: 20 mg Gabapentin (Neurontin) 100 mg PO BID [facility] Last Admin: 08/07/17 22:53 Dose: 100 mg Sodium Chloride (Nacl 0.45% 1000 Ml) 1,000 mls @ 50 mls/hr IV DIRECT [facility] Last Admin: 08/07/17 13:45 Dose: 50 mls/hr Lisinopril (Zestril) 20 mg PO QDAY [facility] Metformin HCl (Glucophage) 500 mg PO BID [facility] Pravastatin Sodium (Pravachol) 40 mg PO QHS [facility] Last Admin: 08/07/17 22:58 Dose: 40 mg Spironolactone (Aldactone) 25 mg PO QDAY [facility] - Physical exam General appearance: no acute distress HEENT: PERRLA Lungs: Clear to auscultation Heart: Regular rate - Brief post op/procedure progress note Procedure: Pt underwent single chamber ICD without apparent complications. Condition: stable - Hospital course Hospital course: Stable overnight observation. Normal function on device interrogation today. - Disposition Condition at discharge: Good Disposition: DC-01 TO HOME OR SELFCARE Short Stay Discharge Plan Activity: advance as tolerated Diet: low fat, low cholesterol, low salt Special Instructions: keep arm in sling for 72 hours Follow up with: HYUN LINDSAY MD [Primary Care Provider] - 7 Days SAM MCGINNIS MD [Staff Physician] - 7 Days Prescriptions: HYDROcodone/APAP 5-325 [[place] 5-325 mg TAB] 1 each PO Q6H PRN #10 tablet PRN Reason: Pain, Moderate (4-6)
[2017-08-08] MEDS ORDERED: ZESTRIL PO SCH (10:00)
[2017-08-08] MEDS ORDERED: NORVASC PO SCH (10:00)
[2017-08-08] MEDS ORDERED: ALDACTONE PO SCH (10:00)
[2017-08-08] MEDS ORDERED: GLUCOPHAGE PO SCH (10:00)
[2017-08-08] MEDS: NEURONTIN PO SCH (10:15)
[2017-08-08] MEDS: COREG PO SCH (10:16)
[2017-08-08 10:18] VITALS: BP 130/80
== END 2017-08-08 13:30 | disposition home or self-care (01) ==
LOC: CATHLABREC 11:17 → 4A 15:35
PROVIDERS: ADMIT Internal Medicine Cardiovascular Disease; ATTEND Internal Medicine Cardiovascular Disease
DX: I11.0 Hypertensive heart disease with heart failure (principal); I42.0 Dilated cardiomyopathy; I50.9 Heart failure, unspecified; E11.9 Type 2 diabetes mellitus without complications; E78.5 Hyperlipidemia, unspecified; I48.0 Paroxysmal atrial fibrillation
CPT/HCPCS: 33249; 36415; 71045; 80048; 82962; 85025; 85610; 85730; 93005; 93010; 96374; 96376; A9270; C1722; C1781; C1892; C1895; G0378; J0690; J1170; J2250; J2704; J3370; J7040; 96375

== ENCOUNTER 2017-10-23 07:11 | Day surgery (SDC) | payer OTHER ==
[2017-10-23] MEDS ORDERED: GENTAMICIN 0.3% OPHTH SOLN ONE (07:59)
[2017-10-23] MEDS ORDERED: ISOPTO CARPINE ONE (08:00)
[2017-10-23] MEDS ORDERED: BSS ONE (08:10)
--- NOTE | 2017-10-23 08:26 | Anesthesia Day of Surgery ---
Anesthesia Day of Surgery - Day of Surgery Patient Examined: Yes Patient H&P Reviewed: Yes Patient is NPO: Yes
--- NOTE | 2017-10-23 08:27 | Anesthesia Consultation ---
Anesthesia Consult and Med Hx Date of service: 10/23/17 - Airway Anesthetic Teeth Evaluation: Good ROM Head & Neck: Adequate Mental/Hyoid Distance: Adequate Mallampati Class: Class I Intubation Access Assessment: Good - Pulmonary Exam CTA: Yes - Cardiac Exam Cardiac Exam: RRR - Pre-Operative Health Status ASA Pre-Surgery Classification: ASA3 Proposed Anesthetic Plan: MAC (Defib for CHF, HTN, NO DM, No GERD) - Pulmonary Hx Smoking: Yes (Quit 7 years ago.) - Cardiovascular System Hx Hypertension: Yes Hx Heart Attack/AMI: No - Central Nervous System Hx Psychiatric Problems: No - Endocrine Hx Non-Insulin Dependent Diabetes: Yes - Hematic Hx Anemia: No - Other Systems Hx Cancer: No
[2017-10-23] MEDS ORDERED: ZOFRAN IV PRN (09:00)
[2017-10-23] MEDS: VIGAMOX OD SCH ×3 (09:00→09:30)
[2017-10-23] MEDS: AK-Dilate OD SCH ×3 (09:00→09:30)
[2017-10-23] MEDS ORDERED: CYCLOGYL OD NR (09:00)
[2017-10-23] MEDS ORDERED: DILAUDID IV PRN (09:00)
[2017-10-23] MEDS: MYDRIACYL OU SCH ×3 (09:00→09:30)
[2017-10-23] MEDS: CYCLOGYL OD SCH ×3 (09:00→09:30)
[2017-10-23] MEDS ORDERED: TETRACAINE 0.5% ONE (09:47)
[2017-10-23] MEDS ORDERED: VERSED ONE (09:57)
[2017-10-23] MEDS ORDERED: BSS OD ONE (10:05)
[2017-10-23] MEDS ORDERED: XYLOCAINE 1% MPF 5 mL IJ ONE (10:08)
[2017-10-23] MEDS ORDERED: DUOVISC VISCOELASTIC INTRAOCULA ONE (10:12)
[2017-10-23] MEDS ORDERED: MIOSTAT OD ONE (10:37)
[2017-10-23] MEDS ORDERED: GENTAMICIN 0.3% OPHTH SOLN OD ONE (10:39)
[2017-10-23] MEDS ORDERED: ISOPTO CARPINE OD ONE (10:40)
[2017-10-23] MEDS ORDERED: PROSHIELD COLLAGEN CORNEAL SHIELD TP ONE (10:40)
[2017-10-23] MEDS ORDERED: TYLENOL PO PRN (11:20)
[2017-10-23] MEDS ORDERED: NEPTAZANE PO SCH (11:30)
[2017-10-23] MEDS ORDERED: NEPTAZANE PO ONE (11:34)
[2017-10-23 12:21] VITALS: BP 100/60
--- NOTE | 2017-10-24 12:07 | Operative Report ---
PREOPERATIVE DIAGNOSIS: Cataract, right eye. POSTOPERATIVE DIAGNOSES: Cataract, right eye. Vitreous prolapse, right eye. PROCEDURES: Phacoemulsification of the lens of cataract with intraocular lens implant posterior chamber, right eye (complex surgery) and mechanical anterior vitrectomy, right eye. INTRAOCULAR LENS: 21 diopter [id number]. SURGEON: Liam Salazar M.D. ANESTHESIA: Topical. COMPLICATIONS: Treatment consisting of eye drops and intraocular injection of lidocaine 1%. DESCRIPTION OF PROCEDURE: The patient was taken to the operating room at which time, the patient was prepped and draped in the usual sterile fashion. A lid speculum to the operative eye. A clear corneal incision was made with a 2.7 keratome knife to enter the anterior chamber and viscoelastic material was then injected into the anterior chamber allowing the chamber to deepen. A sideport incision was made at the 3 o'clock position with a 75 [place] blade. A lens spatula and intraocular lens manipulators were used through the side port incision to aid in the process of phacoemulsification. An anterior capsulotomy was then created using capsulorrhexis forceps. The pupil did not dilate adequately and pupillary retractors were applied. The lens was then hydrodelineated with balanced salt solution in a syringe as well as lidocaine solution. The phacoemulsification tip of the [employer] unit then entered the eye and phacoemulsified the nucleus of the cataract. The cortical elements of the cataract were then aspirated out with the irrigation/aspiration device of the [employer] unit. At this point, it was noted that the posterior capsule had opened up secondary to vitreous prolapse. Mechanical anterior vitrectomy was then conducted successfully. Viscoelastic material was then injected into the anterior chamber allowing the chamber to deepen, a foldable posterior chamber intraocular lens was then delivered into the lens bag (peripheral lip) by means of an intraocular lens injector and the haptics were adequately positioned utilizing a [place] hook. Pupillary retractors were then removed. Miostat was then injected into the anterior chamber allowing the pupil to constrict over the intraocular lens. The intraocular lens was well centered and the pupil was round at the end the case, all viscoelastic material was then aspirated out and the chamber refilled with balanced salt solution in a syringe. The wound was self sealing and there was no leakage. [place] 2% eyedrops were applied to the eye at the end of the case. The collagen shield that had been soaking in antibiotic solution was applied to the eye as well. The lid speculum was then removed. The eye was closed. A of patch was applied and the patient was then allowed to go to recovery room after having tolerated the procedure very well. JOB# [id number] RAÚL/MARTHA
== END 2017-10-23 12:15 | disposition home or self-care (01) ==
LOC: OR 07:11
PROVIDERS: ATTEND Ophthalmology
DX: H26.9 Unspecified cataract (principal); E11.9 Type 2 diabetes mellitus without complications; E78.00 Pure hypercholesterolemia, unspecified; I11.0 Hypertensive heart disease with heart failure; I50.9 Heart failure, unspecified; E66.9 Obesity, unspecified; I48.0 Paroxysmal atrial fibrillation; E78.5 Hyperlipidemia, unspecified; Z82.49 Family history of ischemic heart disease and other diseases of the circulatory system; Z79.84 Long term (current) use of oral hypoglycemic drugs; Z79.899 Other long term (current) drug therapy; Z87.891 Personal history of nicotine dependence; Z90.710 Acquired absence of both cervix and uterus; Z98.890 Other specified postprocedural states
CPT/HCPCS: 66984; 67010; 82962; J2250; V2632

== ENCOUNTER 2018-05-14 14:01 | Inpatient (IN) | payer OTHER ==
--- NOTE | 2018-05-14 14:20 | Emergency Department Report ---
Blank Doc - Documentation Documentation: This is a 62-year-old female that presents with headache, left hand numbness, and lower back pain. Patient seen an rn telephone triage and had pressure check to right eye. Denies facial drooping. Exam: neuro exam normal. no facial drooping. Normal strength. This initial assessment diagnostic orders/clinical plan/treatment(s) is/are subject to change based on patient's health status, clinical progression and re- assessment by fellow clinical providers in the ED. Further treatment and workup at subsequent clinical providers discretion. Patient/guardians urged not to elope from ED s their condition may be serious if not clinically assessed and managed. Initial orders include: 1-Patient sent to MAIN for further evaluation and treatment 2- UA 3- EKG 4- Labs
[2018-05-14 15:31] LABS: Creatine Kinase MB 2.5 ng/mL (0.0-4.0)
[2018-05-14 15:32] LABS: Alanine Aminotransferase 15 units/L (7-56); Albumin 4.2 g/dL (3.9-5); BUN/Creatinine Ratio 24; Blood Urea Nitrogen 33 mg/dL (7-17); Calcium 9.4 mg/dL (8.4-10.2); Hemolysis Index 3
[2018-05-14 15:33] LABS: Basophils % (Auto) 0.6 % (0.0-1.8); Eosinophils # (Auto) 0.1 K/mm3 (0.0-0.4); Eosinophils % (Auto) 1.9 % (0.0-4.3); Hematocrit 32.9 % (30.3-42.9); Hemoglobin 10.6 gm/dl (10.1-14.3); Lymphocytes # (Auto) 2.6 K/mm3 (1.2-5.4); Lymphocytes % (Auto) 33.2 % (13.4-35.0); Mean Corpuscular HGB Conc 32 % (30-34); Mean Corpuscular Volume 82 fl (79-97); Monocytes # (Auto) 0.8 K/mm3 (0.0-0.8); Monocytes % (Auto) 10.6 % (0.0-7.3); Platelet Count 238 K/mm3 (140-440); Red Blood Count 4.03 M/mm3 (3.65-5.03); Red Cell Distribution Width 16.9 % (13.2-15.2)
[2018-05-14 15:41] LABS: INR 1.96 (0.87-1.13)
[2018-05-14 15:42] LABS: Partial Thromboplastin Time 42.6 Sec. (24.2-36.6)
[2018-05-14 17:58] LABS: Bilirubin,Urine NEG (Negative); Blood,Urine NEG (Negative); Mucus,Urine 1+ /HPF
[2018-05-14 17:59] LABS: Color,Urine Yellow (Yellow)
--- NOTE | 2018-05-14 21:28 | Emergency Department Report ---
HPI - General Chief Complaint: Headache Time Seen by Provider: 05/14/18 14:17 - HPI HPI: Room 6 The patient is 62-year-old female presenting with a chief complaint of headache and left hand numbness. Patient states she developed a right-sided headache l ast night and this morning when she waking her left hand was numb. Patient denies numbness anywhere else outside of the left hand. She denies dysarthria or dysphagia. She denies any recent trauma. This morning the patient also has an episode substernal chest discomfort the last several minutes. Patient denies shortness of breath, nausea/vomiting or diaphoresis. Patient denies history of fever. 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 - Surgical History Past Surgical History?: Yes Hx Internal Defibrillator: Yes (INSTALLED 07/2017) Additional Surgical History: HYSTERECTOMY - Family History Family history: no significant - Social History Smoking Status: Never Smoker Substance Use Type: None, Alcohol (occasional) - Medications Home Medications: Home Medications Medication Instructions Recorded Confirmed Last Taken Type Ergocalciferol [Vitamin D2] 1 cap PO QWEEK 04/09/17 10/23/17 10/21/17 History Metformin HCl 500 mg PO BID 04/09/17 10/21/17 10/22/17 History Carvedilol [Coreg] 3.125 mg PO BID #60 tablet 07/11/17 10/21/17 10/22/17 Rx Ferrous Sulfate [Feosol 325 MG tab] 325 mg PO BID #60 tablet 07/11/17 10/21/17 10/22/17 Rx Gabapentin [Neurontin] 100 mg PO BID #60 capsule 07/11/17 10/21/17 10/22/17 Rx Lisinopril [Zestril TAB] 20 mg PO QDAY #30 tablet 07/11/17 10/23/17 10/23/17 07:00 Rx Simvastatin (Nf) [Zocor TAB] 20 mg PO QHS #30 tablet 07/11/17 10/21/17 10/22/17 Rx amLODIPine [Norvasc] 5 mg PO DAILY #30 tablet 07/11/17 10/21/17 10/22/17 Rx Digoxin [Lanoxin] 0.125 mg PO DAILY 08/07/17 10/21/17 10/22/17 History Furosemide [Lasix TAB] 20 mg PO BID 08/07/17 10/21/17 10/22/17 History Spironolactone [Aldactone] 25 mg PO QDAY 08/07/17 10/21/17 10/22/17 History Warfarin Sodium [Jantoven] 5 mg PO DAILY 08/07/17 10/21/17 10/22/17 History ED Review of Systems ROS: Stated complaint: UPPER BODY PAIN Other details as noted in HPI Constitutional: denies: diaphoresis Eyes: denies: eye pain ENT: denies: throat pain Respiratory: no symptoms reported Cardiovascular: chest pain Endocrine: no symptoms reported Gastrointestinal: denies: nausea, vomiting Genitourinary: denies: dysuria Musculoskeletal: denies: arthralgia Neurological: headache, paresthesias Physical Exam - Physical Exam Vital Signs: Vital Signs 05/14/18 14:17 Temperature 97.7 F Pulse Rate 89 Respiratory 18 Rate Blood Pressure 119/65 O2 Sat by Pulse 98 Oximetry Physical Exam: GENERAL: The patient is well-developed well-nourished female lying on stretcher not appearing to be in acute distress. [] HEENT: Normocephalic. Atraumatic. Extraocular motions are intact. Patient has moist mucous membranes. NECK: Supple. Trachea midline CHEST/LUNGS: Clear to auscultation. There is no respiratory distress noted. HEART/CARDIOVASCULAR: Regular. There is no tachycardia. There is no gallop rub or murmur. 2+ left radial pulse ABDOMEN: Abdomen is soft, nontender. Patient has normal bowel sounds. There is no abdominal distention. SKIN: There is no rash. There is no edema. There is no diaphoresis. NEURO: The patient is awake, alert, and oriented. The patient is cooperative. The patient has no focal neurologic deficits. The patient has normal speech. Cranial nerves II through XII grossly intact, no drift. Handkerchief Presser equal bilaterally MUSCULOSKELETAL: TThere is no evidence of acute injury. ED Course Vital Signs 05/14/18 14:17 Temperature 97.7 F Pulse Rate 89 Respiratory 18 Rate Blood Pressure 119/65 O2 Sat by Pulse 98 Oximetry ED Medical Decision Making - Lab Data Result diagrams: 05/14/18 14:50 05/14/18 14:50 Laboratory Tests 05/14/18 05/14/18 05/14/18 14:50 14:50 14:50 WBC 7.9 RBC 4.03 Hgb 10.6 Hct 32.9 MCV 82 MCH 26 L MCHC 32 RDW 16.9 H Plt Count 238 Lymph % (Auto) 33.2 [place] % (Auto) 10.6 H Eos % (Auto) 1.9 Baso % (Auto) 0.6 Lymph # 2.6 [place] # 0.8 Eos # 0.1 Baso # 0.0 Seg Neutrophils % 53.7 Seg Neutrophils # 4.2 PT 23.6 H INR 1.96 H APTT 42.6 H Sodium 138 Potassium 4.4 Chloride 100.1 Carbon Dioxide 26 Anion Gap 16 BUN 33 H Creatinine 1.4 H Estimated GFR 46 BUN/Creatinine Ratio 24 Glucose 306 H Calcium 9.4 Total Bilirubin 0.20 AST 26 ALT 15 Alkaline Phosphatase 78 Total Creatine Kinase 160 H CK-MB (CK-2) 2.5 CK-MB (CK-2) Rel Index 1.5 Troponin T < 0.010 Total Protein 6.9 Albumin 4.2 Albumin/Globulin Ratio 1.6 Urine Color Urine Turbidity Urine pH Ur Specific [place] Urine Protein Urine Glucose (UA) Urine Ketones Urine Blood Urine Nitrite Urine Bilirubin Urine Urobilinogen Ur Leukocyte Esterase Urine WBC (Auto) Urine RBC (Auto) U Epithel Cells (Auto) Urine Mucus 05/14/18 17:31 WBC RBC Hgb Hct MCV MCH MCHC RDW Plt Count Lymph % (Auto) [place] % (Auto) Eos % (Auto) Baso % (Auto) Lymph # [place] # Eos # Baso # Seg Neutrophils % Seg Neutrophils # PT INR APTT Sodium Potassium Chloride Carbon Dioxide Anion Gap BUN Creatinine Estimated GFR BUN/Creatinine Ratio Glucose Calcium Total Bilirubin AST ALT Alkaline Phosphatase Total Creatine Kinase CK-MB (CK-2) CK-MB (CK-2) Rel Index Troponin T Total Protein Albumin Albumin/Globulin Ratio Urine Color Yellow Urine Turbidity Cloudy Urine pH 5.0 Ur Specific [place] 1.025 Urine Protein 100 mg/dl Urine Glucose (UA) 50 Urine Ketones Neg Urine Blood Neg Urine Nitrite Neg Urine Bilirubin Neg Urine Urobilinogen 2.0 Ur Leukocyte Esterase Lg Urine WBC (Auto) 41.0 H Urine RBC (Auto) 20.0 U Epithel Cells (Auto) 16.0 H Urine Mucus 1+ - EKG Data -: EKG Interpreted by Me EKG shows normal: sinus rhythm Rate: normal - EKG Data Interpretation: unchanged when compared t (10/27/2012), nonspecific ST-T wave jose (T-wave inversions in leads 1 and aVL) - Radiology Data Radiology results: report reviewed (CT head), image reviewed (CT head, chest x- ray) interpreted by me: Chest x-ray-no focal infiltrates, no pneumothorax CT head (read by radiologist)-negative head - Differential Diagnosis TIA, ACS, pericarditis, carpal tunnel syndrome, Critical care attestation.: If time is entered above; I have spent that time in minutes in the direct care of this critically ill patient, excluding procedure time. ED Disposition Clinical Impression: Headache, Chest pain, Numbness of left hand Disposition: -09 OP ADMIT IP TO THIS HOSP Is pt being admited?: Yes Does the pt Need Aspirin: Yes Condition: Fair Instructions: Chest Pain (ED) Referrals: LUBA FISHER MD [Primary Care Provider] - 3-5 Days Time of Disposition: 22:08 (hospitalist paged (Dr. Marilynn Byrnes))
--- NOTE | 2018-05-14 22:04 | Cat Scan Report ---
FINAL REPORT EXAM: CT HEAD/BRAIN WO CON HISTORY: headache, left hand numbness TECHNIQUE: CT head without contrast PRIORS: None. FINDINGS: No acute intra-axial or extra-axial hemorrhage is identified. There is no evidence of midline shift or mass effect. The ventricles and sulci are within normal limits. Bower-white matter differentiation is intact. No acute parenchymal abnormalities seen. Bony calvarium is grossly intact. Visualized portions of the mastoids and paranasal sinuses are unre markable. IMPRESSION: Negative CT head
[2018-05-14] MEDS ORDERED: ASPIRIN PO ONE (22:09)
[2018-05-14] MEDS ORDERED: LEVAQUIN PO ONE (22:11)
--- NOTE | 2018-05-14 22:34 | History and Physical Report ---
History of Present Illness Date of examination: 05/14/18 History of present illness: 62-year-old woman with a history of CHF, hypertension, diabetes, coronary artery disease, A. elsy comes to the emergency room complaining of left hand numbness since this morning that has been constant, right-sided headache. Also complain of chest discomfort in the anterior chest, intermittent for less than 5 seconds, intensity 2/10, no radiation, cannot identify exacerbating or relieving factors. Denies nausea vomiting, shortness of breath, diaphoresis or palpitation. She had a cardiac cath in March 2017, no significant obstructive disease Review of systems Constitutional: no weight loss, chills, fever Ears, eyes, nose, mouth and throat: no nasal congestion, no nasal discharge, no sinus pressure, no vision change, no red eye. Neck: No neck pain or rigidity. Cardiovascular: no palpitations, +chest pain Respiratory: no cough, shortness of breath Gastrointestinal: no hematochezia, abdominal pain Genitourinary : no frequency , no hematuria Musculoskeletal: no joint swelling or muscle ache Integumentary: no rash, no pruritis Neurological:no focal weakness Endocrine: no cold or heat intolerance, no polyuria or polydipsia Hematologic/Lymphatic: no easy bruising, no easy bleeding, no gland swelling Allergic/Immunologic: no urticaria, no angioedema. PAST MEDICAL HISTORY: CHF, hypertension, diabetes, coronary artery disease PAST SURGICAL HISTORY: Hysterectomy, AICD FAMILY HISTORY: Hypertension, diabetes SOCIAL HISTORY: Denies alcohol, tobacco, drugs Medications and Allergies Allergies Allergy/AdvReac Type Severity Reaction Status Date / Time No Known Allergies Allergy Verified 05/14/18 14:03 Home Medications Medication Instructions Recorded Confirmed Last Taken Type Ergocalciferol [Vitamin D2] 1 cap PO QWEEK 04/09/17 05/15/18 10/21/17 History Metformin HCl 500 mg PO BID 04/09/17 05/15/18 10/22/17 History Ferrous Sulfate [Feosol 325 MG tab] 325 mg PO BID #60 tablet 07/11/17 05/15/18 0 10/22/17 Rx Gabapentin [Neurontin] 100 mg PO BID #60 capsule 07/11/17 05/15/18 10/22/17 Rx Lisinopril [Zestril TAB] 20 mg PO QDAY #30 tablet 07/11/17 05/15/1810/23/18 07:00 Rx Simvastatin (Nf) [Zocor TAB] 20 mg PO QHS #30 tablet 07/11/17 05/15/18 10/22/17 Rx amLODIPine [Norvasc] 5 mg PO DAILY #30 tablet 07/11/17 05/15/18 10/22/17 Rx Digoxin [Lanoxin] 0.125 mg PO DAILY 08/07/17 05/15/18 10/22/17 History Furosemide [Lasix TAB] 20 mg PO BID 08/07/17 05/15/18 10/22/17 History Spironolactone [Aldactone] 25 mg PO QDAY 08/07/17 05/15/18 10/22/17 History Warfarin Sodium [Jantoven] 5 mg PO DAILY 08/07/17 05/15/18 10/22/17 History Carvedilol [Coreg] 6.25 mg PO BID 05/15/18 05/15/18 Unknown History Exam - Physical Exam Narrative exam: Gen. appearance: Patient lying in bed in no acute distress HEENT: Normocephalic/atraumatic, pupils equal round reactive to light, extra occular movement intact, no scleral icterus, no JVD or thyromegaly or nodule, neck is supple, mucous membrane moist, no erythema or exudate Heart: S1-S2, regular rate and rhythm Lungs: Clear to auscultation bilateral breathing comfortable Abdomen: Positive bowel sounds, nontender, nondistended, no organomegaly Extremities: No edema, cyanosis, clubbing Neuro:: Oriented 3 , cranial nerves II-12 intact, speech, motor intact Skin: No rash, nodules, warm dry - Constitutional Vitals: Temp Pulse Resp BP Pulse Ox 97.7 F 89 18 119/65 98 05/14/18 14:17 05/14/18 14:17 05/14/18 14:17 05/14/18 14:17 05/14/18 14:17 Results - Labs CBC & Chem 7: 05/14/18 14:50 05/14/18 14:50 Labs: Abnormal lab results 05/14/18 05/14/18 05/14/18 Range/Units 14:50 14:50 14:50 MCH 26 L (28-32) pg RDW 16.9 H (13.2-15.2) % [place] % (Auto) 10.6 H (0.0-7.3) % PT 23.6 H (12.2-14.9) Sec. INR 1.96 H (0.87-1.13) APTT 42.6 H (24.2-36.6) Sec. BUN 33 H (7-17) mg/dL Creatinine 1.4 H (0.7-1.2) mg/dL Glucose 306 H (65-100) mg/dL Total Creatine Kinase 160 H (30-135) units/L Urine WBC (Auto) (0.0-6.0) /HPF U Epithel Cells (Auto) (0-13.0) /HPF 05/14/18 Range/Units 17:31 MCH (28-32) pg RDW (13.2-15.2) % [place] % (Auto) (0.0-7.3) % PT (12.2-14.9) Sec. INR (0.87-1.13) APTT (24.2-36.6) Sec. BUN (7-17) mg/dL Creatinine (0.7-1.2) mg/dL Glucose (65-100) mg/dL Total Creatine Kinase (30-135) units/L Urine WBC (Auto) 41.0 H (0.0-6.0) /HPF U Epithel Cells (Auto) 16.0 H (0-13.0) /HPF - Imaging and Cardiology Chest x-ray: report reviewed CT Scan - head: report reviewed Assessment and Plan Assessment Left hand numbness, rule out CVA Atypical chest pain Coronary artery disease Hypertension Diabetes CHF, stable History of A. fib Plan Admit to medicine Obtain MRI of the head, carotid Doppler, echo Doing yard checks, consult neurology, PT, OT Consult cardiology, check cardiac enzymes Start aspirin, statin Check fingersticks and initiate insulin sliding scale Continue appropriate outpatient medication DVT prophylaxis with coumadin
--- NOTE | 2018-05-14 22:51 | XRay Report ---
FINAL REPORT EXAM: XR CHEST 1V AP HISTORY: chest pain TECHNIQUE: AP portable view of the chest. PRIORS: 08/07/2017 FINDINGS: There is a left-sided pacemaker that appears adequately positioned. The cardiac silhouette is mildly enlarged without change. The lungs are clear. The bones and soft tissues are unremarkable. IMPRESSION: Stable mild cardiomegaly. No acute findings.
--- NOTE | 2018-05-14 23:03 | History and Physical Report ---
Medications and Allergies Allergies Allergy/AdvReac Type Severity Reaction Status Date / Time No Known Allergies Allergy Verified 05/14/18 14:03 Home Medications Medication Instructions Recorded Confirmed Last Taken Type Ergocalciferol [Vitamin D2] 1 cap PO QWEEK 04/09/17 10/23/17 10/21/17 History Metformin HCl 500 mg PO BID 04/09/17 10/21/17 10/22/17 History Carvedilol [Coreg] 3.125 mg PO BID #60 tablet 07/11/17 10/21/17 10/22/17 Rx Ferrous Sulfate [Feosol 325 MG tab] 325 mg PO BID #60 tablet 07/11/17 10/21/17 10/22/17 Rx Gabapentin [Neurontin] 100 mg PO BID #60 capsule 07/11/17 10/21/17 10/22/17 Rx Lisinopril [Zestril TAB] 20 mg PO QDAY #30 tablet 07/11/17 10/23/17 10/23/17 07:00 Rx Simvastatin (Nf) [Zocor TAB] 20 mg PO QHS #30 tablet 07/11/17 10/21/17 10/22/17 Rx amLODIPine [Norvasc] 5 mg PO DAILY #30 tablet 07/11/17 10/21/17 10/22/17 Rx Digoxin [Lanoxin] 0.125 mg PO DAILY 08/07/17 10/21/17 10/22/17 History Furosemide [Lasix TAB] 20 mg PO BID 08/07/17 10/21/17 10/22/17 History Spironolactone [Aldactone] 25 mg PO QDAY 08/07/17 10/21/17 10/22/17 History Warfarin Sodium [Jantoven] 5 mg PO DAILY 08/07/17 10/21/17 10/22/17 History Exam - Constitutional Vitals: Temp Pulse Resp BP Pulse Ox 97.7 F 89 18 119/65 98 05/14/18 14:17 05/14/18 14:17 05/14/18 14:17 05/14/18 14:17 05/14/18 14:17 Results - Labs CBC & Chem 7: 05/14/18 14:50 05/14/18 14:50 Labs: Abnormal lab results 05/14/18 05/14/18 05/14/18 Range/Units 14:50 14:50 14:50 MCH 26 L (28-32) pg RDW 16.9 H (13.2-15.2) % [place] % (Auto) 10.6 H (0.0-7.3) % PT 23.6 H (12.2-14.9) Sec. INR 1.96 H (0.87-1.13) APTT 42.6 H (24.2-36.6) Sec. BUN 33 H (7-17) mg/dL Creatinine 1.4 H (0.7-1.2) mg/dL Glucose 306 H (65-100) mg/dL Total Creatine Kinase 160 H (30-135) units/L Urine WBC (Auto) (0.0-6.0) /HPF U Epithel Cells (Auto) (0-13.0) /HPF 05/14/18 Range/Units 17:31 MCH (28-32) pg RDW (13.2-15.2) % [place] % (Auto) (0.0-7.3) % PT (12.2-14.9) Sec. INR (0.87-1.13) APTT (24.2-36.6) Sec. BUN (7-17) mg/dL Creatinine (0.7-1.2) mg/dL Glucose (65-100) mg/dL Total Creatine Kinase (30-135) units/L Urine WBC (Auto) 41.0 H (0.0-6.0) /HPF U Epithel Cells (Auto) 16.0 H (0-13.0) /HPF
[2018-05-15] MEDS ORDERED: DULCOLAX PR PRN (01:19)
[2018-05-15] MEDS ORDERED: MILK OF MAGNESIA PO PRN (01:19)
[2018-05-15] MEDS ORDERED: ZOFRAN IV PRN (01:19)
[2018-05-15] MEDS ORDERED: REGLAN PO PRN (01:19)
[2018-05-15] MEDS ORDERED: SODIUM CHLORIDE FLUSH SYRINGE 10 ML IV PRN (01:19)
[2018-05-15] MEDS ORDERED: TYLENOL PO PRN (01:19)
[2018-05-15] MEDS ORDERED: D50W (25GM) Syringe IV PRN (01:29)
[2018-05-15] MEDS ORDERED: COUMADIN PO ONE (01:54)
[2018-05-15 02:17] LABS: Creatine Kinase MB 2.4 ng/mL (0.0-4.0)
[2018-05-15 06:38] LABS: Basophils % (Auto) 0.5 % (0.0-1.8); Eosinophils # (Auto) 0.1 K/mm3 (0.0-0.4); Eosinophils % (Auto) 2.2 % (0.0-4.3); Hematocrit 30.9 % (30.3-42.9); Hemoglobin 10.1 gm/dl (10.1-14.3); Lymphocytes # (Auto) 2.2 K/mm3 (1.2-5.4); Mean Corpuscular HGB Conc 33 % (30-34); Mean Corpuscular Volume 81 fl (79-97); Monocytes # (Auto) 0.8 K/mm3 (0.0-0.8); Monocytes % (Auto) 11.9 % (0.0-7.3); Platelet Count 205 K/mm3 (140-440); Red Blood Count 3.81 M/mm3 (3.65-5.03); Red Cell Distribution Width 16.6 % (13.2-15.2)
[2018-05-15 06:43] LABS: INR 2.25 (0.87-1.13)
[2018-05-15 06:44] LABS: Partial Thromboplastin Time 42.1 Sec. (24.2-36.6)
[2018-05-15 06:50] LABS: Creatine Kinase MB 2.2 ng/mL (0.0-4.0)
[2018-05-15 06:53] LABS: Calcium 9.3 mg/dL (8.4-10.2)
[2018-05-15] MEDS: HumaLOG SUB-Q SCH ×4 (08:00→21:24)
[2018-05-15] MEDS ORDERED: GLUCOPHAGE PO SCH (08:00)
[2018-05-15] MEDS ORDERED: LOVENOX SUB-Q SCH (10:00)
[2018-05-15] MEDS ORDERED: VITAMIN D2 PO SCH (10:00)
[2018-05-15] MEDS ORDERED: ASPIRIN PO SCH (10:00)
--- NOTE | 2018-05-15 12:50 | Consultation ---
Addendum entered and electronically signed by DANG JHA MD 05/15/18 18:27: Left hand numbness - reason for admission INR is therapeutic on admission CT brain shows no acute process Echo reviewed - small mobile echogenic density noted in the LV attached to the mid septum, etiology unclear. Could be a small clot. Patient already anticoagulated Outpatient [facility] can be considered to further evaluate this echogenic density No further cardiac work-up is needed as inpatient Original Note: History of Present Illness Consult date: 05/15/18 Consult reason: chest pain History of present illness: Patient is a 62 year old woman with a history of hypertension, nonischemic cardiomyopathy and has an indwelling cardiac defibrillator. She also has paroxysmal atrial fibrillation and is on warfarin for oral anticoagulation. Patient presented with complaints of left hand numbness. Workup in the emergency department revealed a negative head CT scan. A cardiac consultation was requested for "chest pain". Patient denies chest pain. She has no unusual shortness of breath. She denies palpitations and AICD discharge. Chest x-ray is negative for acute cardiopulmonary process. Therapeutic INR of 2.25 on presentation. Cardiac enzymes are normal and her ECG is sinus rhythm, no acute ischemic changes. Medications and Allergies Allergies Allergy/AdvReac Type Severity Reaction Status Date / Time No Known Allergies Allergy Verified 05/14/18 14:03 Home Medications Medication Instructions Recorded Confirmed Last Taken Type Ergocalciferol [Vitamin D2] 1 cap PO QWEEK 04/09/17 05/15/18 10/21/17 History Metformin HCl 500 mg PO BID 04/09/17 05/15/18 10/22/17 History Ferrous Sulfate [Feosol 325 MG tab] 325 mg PO BID #60 tablet 07/11/17 05/15/18 10/22/17 Rx Gabapentin [Neurontin] 100 mg PO BID #60 capsule 07/11/17 05/15/18 10/22/17 Rx Lisinopril [Zestril TAB] 20 mg PO QDAY #30 tablet 07/11/17 05/15/18 10/23/17 07:00 Rx Simvastatin (Nf) [Zocor TAB] 20 mg PO QHS #30 tablet 07/11/17 05/15/18 10/22/17 Rx amLODIPine [Norvasc] 5 mg PO DAILY #30 tablet 04/05/15/18 10/22/17 Rx Digoxin [Lanoxin] 0.125 mg PO DAILY 08/07/17 05/15/18 10/22/17 History Furosemide [Lasix TAB] 20 mg PO BID 08/07/17 05/15/18 10/22/17 History Spironolactone [Aldactone] 25 mg PO QDAY 08/07/17 05/15/18 10/22/17 History Warfarin Sodium [Jantoven] 5 mg PO DAILY 08/07/17 05/15/18 10/22/17 History Carvedilol [Coreg] 6.25 mg PO BID 05/15/18 05/15/18 Unknown History Active Meds: Active Medications Acetaminophen (Tylenol) 650 mg PO Q4H PRN PRN Reason: Pain, Mild (1-3) Amlodipine Besylate (Norvasc) 5 mg PO DAILY [facility] Aspirin (Baby Aspirin) 81 mg PO QDAY [facility] Bisacodyl (Dulcolax) 10 mg [place] QDAY PRN PRN Reason: Constipation Carvedilol (Coreg) 6.25 mg PO BID [facility] Dextrose (D50w (25gm) Syringe) 50 ml IV PRN PRN PRN Reason: Hypoglycemia Digoxin (Lanoxin) 0.125 mg PO DAILY@1700 [facility] Ergocalciferol (Vitamin D2) 50,000 unit PO Fr [facility] Ferrous Sulfate (Feosol) 325 mg PO BID [facility] Furosemide (Lasix) 20 mg PO BID [facility] Gabapentin (Neurontin) 100 mg PO BID [facility] Insulin Glargine (Lantus) 15 units SUB-Q BID [facility] Insulin Human Lispro (Humalog) 0 unit SUB-Q ACHS JERED; Protocol Lisinopril (Zestril) 20 mg PO QDAY@0800 [facility] Magnesium Hydroxide (Milk Of Magnesia) 30 ml PO Q4H PRN PRN Reason: Constipation Metformin HCl (Glucophage) 500 mg PO BIDDIAB [facility] Metoclopramide HCl (Reglan) 5 mg PO Q6H PRN PRN Reason: Nausea And Vomiting Ondansetron HCl (Zofran) 4 mg IV Q8H PRN PRN Reason: Nausea And Vomiting Pravastatin Sodium (Pravachol) 20 mg PO QHS [facility] Sodium Chloride (Sodium Chloride Flush Syringe 10 Ml) 10 ml IV PRN PRN PRN Reason: LINE FLUSH Spironolactone (Aldactone) 25 mg PO QDAY [facility] Warfarin Sodium (Coumadin) 2.5 mg PO DAILY@1700 [facility] Physical Examination Vital Signs Temp Pulse Resp BP Pulse Ox 97.7 F 89 18 119/65 98 05/14/18 14:17 05/14/18 14:17 05/14/18 14:17 05/14/18 14:17 05/14/18 14:17 General appearance: no acute distress HEENT: Positive: PERRL Neck: Positive: trachea midline Cardiac: Positive: Reg Rate and Rhythm Lungs: Positive: Decreased Breath Sounds Neuro: Positive: Grossly Intact Results 05/15/18 05:36 05/15/18 05:36 Cardiac Enzymes 05/14/18 05/15/18 05/15/18 Range/Units 14:50 01:38 05:36 AST 26 (5-40) units/L CK-MB (CK-2) 2.5 2.4 2.2 (0.0-4.0) ng/mL Coagulation 05/14/18 05/15/18 Range/Units 14:50 05:36 PT 23.6 H 26.4 H (12.2-14.9) Sec. INR 1.96 H 2.25 H (0.87-1.13) APTT 42.6 H 42.1 H (24.2-36.6) Sec. CBC 05/14/18 05/15/18 Range/Units 14:50 05:36 WBC 7.9 6.7 (4.5-11.0) K/mm3 RBC 4.03 3.81 (3.65-5.03) M/mm3 Hgb 10.6 10.1 (10.1-14.3) gm/dl Hct 32.9 30.9 (30.3-42.9) % Plt Count 238 205 (140-440) K/mm3 Lymph # 2.6 2.2 (1.2-5.4) K/mm3 [place] # 0.8 0.8 (0.0-0.8) K/mm3 Eos # 0.1 0.1 (0.0-0.4) K/mm3 Baso # 0.0 0.0 (0.0-0.1) K/mm3 Comprehensive Metabolic Panel 02/21/19 02/22/19 Range/Units 14:50 05:36 Sodium 138 138 (137-145) mmol/L Potassium 4.4 4.6 (3.6-5.0) mmol/L Chloride 100.1 102.1 (98-107) mmol/L Carbon Dioxide 26 22 (22-30) mmol/L BUN 33 H 32 H (7-17) mg/dL Creatinine 1.4 H 1.2 (0.7-1.2) mg/dL Glucose 306 H 272 H (65-100) mg/dL Calcium 9.4 9.3 (8.4-10.2) mg/dL AST 26 (5-40) units/L ALT 15 (7-56) units/L Alkaline Phosphatase 78 (35-129) units/L Total Protein 6.9 (6.3-8.2) g/dL Albumin 4.2 (3.9-5) g/dL Assessment and Plan Left hand numbess Atypical chest pain Nonischemic CMP, EF 20-25% Presence of AICD Paroxysmal Afib on warfarin as an outpatient. INR 2.25 on presentation
[2018-05-15] MEDS: ALDACTONE PO SCH (13:03)
[2018-05-15] MEDS: FEOSOL PO SCH ×2 (13:03→21:23)
--- NOTE | 2018-05-15 13:03 | Vascular Lab Report ---
FINAL REPORT EXAM: VL CAROTID DUPLEX BILAT HISTORY: stroke TECHNIQUE: Grayscale and color and spectral Doppler ultrasound imaging of the carotid arteries was p erformed. PRIORS: None. FINDINGS: No areas of complete occlusion. Normal waveforms are seen throughout. No aneurysm. Normal flow is see n in the external carotid arteries. Antegrade flow is seen in the vertebral arteries. Calcified ather osclerotic plaque is seen within the proximal internal carotid arteries and at the carotid bifurcatio ns. Peak systolic velocities in cm/s below: Right: CCA: 113 proximally, 81 distally ICA: 118 proximally, 119 mid, 83 distally ECA: 164 Left: CCA: 97 proximally, 103 distally ICA: 118 proximally, 117 mid, 99 distally ECA: 114 The right ICA:CCA ratio is 1.05. The left ICA:CCA ratio is 1.15. IMPRESSION: Less than 50 percent stenosis of the internal carotid arteries.
[2018-05-15] MEDS: NEURONTIN PO SCH ×2 (13:04→21:24)
[2018-05-15] MEDS: COREG PO SCH ×2 (13:04→21:25)
[2018-05-15] MEDS: NORVASC PO SCH ×2 (13:04→13:17)
[2018-05-15] MEDS: BABY ASPIRIN PO SCH (13:05)
[2018-05-15] MEDS: LASIX PO SCH ×2 (13:05→21:24)
[2018-05-15] MEDS: ZESTRIL PO SCH (13:16)
[2018-05-15] MEDS: LANTUS SUB-Q SCH ×2 (13:48→22:21)
--- NOTE | 2018-05-15 15:07 | Progress Note ---
Assessment and Plan Assessment and plan: Left hand Paresthesia, rule out acute stroke -Head CT scan negative -Patient is unable to get MRI brain due to history of defibrillator placement, will repeat head CT scan due to persistent symptom -Carotid Doppler showed less than 50% stenosis -Echocardiogram showed EF of 45-50% with diastolic dysfunction -Neurology consult pending Atypical chest pain, R/O ACS -Serial troponin levels negative -Cardiology following Non-ischemic cardiomyopathy -Status post AICD -Echo done today showed EF of 45-50% Paroxysmal atrial fibrillation -Heart rate controlled -On oral anticoagulation with warfarin, INR level therapeutic HTN -Controlled DM2 with hyperglycemia -insulin regimen adjusted, will monitor Disposition: Patient to be discharged if cleared by neurology History Interval history: Patient continues to complain of left hand numbness Hospitalist Physical - Constitutional Vitals: Temp Pulse Resp BP Pulse Ox 98.3 F 86 17 112/67 95 05/15/18 06:08 05/15/18 06:08 05/15/18 06:08 05/15/18 06:08 05/15/18 06:08 General appearance: Present: no acute distress - EENT Eyes: Present: PERRL, EOM intact ENT: hearing intact, clear oral mucosa - Neck Neck: Present: supple, normal ROM - Respiratory Respiratory effort: normal Respiratory: bilateral: CTA - Cardiovascular Rhythm: regular Heart Sounds: Present: S1 & S2 - Extremities Extremities: No edema - Abdominal General gastrointestinal: soft, non-tender, normal bowel sounds - Neurologic Neurologic: CNII-XII intact Results - Labs CBC & Chem 7: 05/15/18 05:36 05/15/18 05:36 Labs: Laboratory Last Values WBC 6.7 K/mm3 (4.5-11.0) 05/15/18 05:36 RBC 3.81 M/mm3 (3.65-5.03) 05/15/18 05:36 Hgb 10.1 gm/dl (10.1-14.3) 05/15/18 05:36 Hct 30.9 % (30.3-42.9) 05/15/18 05:36 MCV 81 fl (79-97) 05/15/18 05:36 MCH 27 pg (28-32) L 05/15/18 05:36 MCHC 33 % (30-34) 05/15/18 05:36 RDW 16.6 % (13.2-15.2) H 05/15/18 05:36 Plt Count 205 K/mm3 (140-440) 05/15/18 05:36 Lymph % (Auto) 33.0 % (13.4-35.0) 05/15/18 05:36 Norton % (Auto) 11.9 % (0.0-7.3) H 05/15/18 05:36 Eos % (Auto) 2.2 % (0.0-4.3) 05/15/18 05:36 Baso % (Auto) 0.5 % (0.0-1.8) 05/15/18 05:36 Lymph # 2.2 K/mm3 (1.2-5.4) 05/15/18 05:36 Norton # 0.8 K/mm3 (0.0-0.8) 05/15/18 05:36 Eos # 0.1 K/mm3 (0.0-0.4) 05/15/18 05:36 Baso # 0.0 K/mm3 (0.0-0.1) 05/15/18 05:36 Seg Neutrophils % 52.4 % (40.0-70.0) 05/15/18 05:36 Seg Neutrophils # 3.5 K/mm3 (1.8-7.7) 05/15/18 05:36 PT 26.4 Sec. (12.2-14.9) H 05/15/18 05:36 INR 2.25 (0.87-1.13) H 05/15/18 05:36 APTT 42.1 Sec. (24.2-36.6) H 05/15/18 05:36 Sodium 138 mmol/L (137-145) 05/15/18 05:36 Potassium 4.6 mmol/L (3.6-5.0) 05/15/18 05:36 Chloride 102.1 mmol/L (98-107) 05/15/18 05:36 Carbon Dioxide 22 mmol/L (22-30) 05/15/18 05:36 Anion Gap 19 mmol/L 05/15/18 05:36 BUN 32 mg/dL (7-17) H 05/15/18 05:36 Creatinine 1.2 mg/dL (0.7-1.2) 05/15/18 05:36 Estimated GFR 55 ml/min 05/15/18 05:36 BUN/Creatinine Ratio 27 % 05/15/18 05:36 Glucose 272 mg/dL (65-100) H 05/15/18 05:36 POC Glucose 189 (70-105) H 05/15/18 13:01 Calcium 9.3 mg/dL (8.4-10.2) 05/15/18 05:36 Total Bilirubin 0.20 mg/dL (0.1-1.2) 05/14/18 14:50 AST 26 units/L (5-40) 05/14/18 14:50 ALT 15 units/L (7-56) 05/14/18 14:50 Alkaline Phosphatase 78 units/L (35-129) 05/14/18 14:50 Total Creatine Kinase 127 units/L (30-135) 05/15/18 05:36 CK-MB (CK-2) 2.2 ng/mL (0.0-4.0) 05/15/18 05:36 CK-MB (CK-2) Rel Index 1.7 (0-4) 05/15/18 05:36 Troponin T < 0.010 ng/mL (0.00-0.029) 05/15/18 05:36 Total Protein 6.9 g/dL (6.3-8.2) 05/14/18 14:50 Albumin 4.2 g/dL (3.9-5) 05/14/18 14:50 Albumin/Globulin Ratio 1.6 % 05/14/18 14:50 Urine Color Yellow (Yellow) 05/14/18 17:31 Urine Turbidity Cloudy (Clear) 05/14/18 17:31 Urine pH 5.0 (5.0-7.0) 05/14/18 17:31 Ur Specific [place] 1.025 (1.003-1.030) 05/14/18 17:31 Urine Protein 100 mg/dl mg/dL (Negative) 05/14/18 17:31 Urine Glucose (UA) 50 mg/dL (Negative) 05/14/18 17:31 Urine Ketones Neg mg/dL (Negative) 05/14/18 17:31 Urine Blood Neg (Negative) 05/14/18 17:31 Urine Nitrite Neg (Negative) 05/14/18 17:31 Urine Bilirubin Neg (Negative) 05/14/18 17:31 Urine Urobilinogen 2.0 mg/dL (<2.0) 05/14/18 17:31 Ur Leukocyte Esterase Lg (Negative) 05/14/18 17:31 Urine WBC (Auto) 41.0 /HPF (0.0-6.0) H 05/14/18 17:31 Urine RBC (Auto) 20.0 /HPF (0.0-6.0) 05/14/18 17:31 U Epithel Cells (Auto) 16.0 /HPF (0-13.0) H 05/14/18 17:31 Urine Mucus 1+ /HPF 05/14/18 17:31 Digoxin 0.3 ng/mL (0.9-2.0) L 05/15/18 09:46
[2018-05-15] MEDS ORDERED: ISOPTO TEARS 0.5% OD PRN (15:24)
--- NOTE | 2018-05-15 15:32 | Consultation ---
History of Present Illness Consult date: 05/15/18 Requesting physician: SHA MAGUIRE Reason for Consult: numbness Chief complaint: numbness left hand History of present illness: This 62-year-old right handed -[place]ican female noted numbness left hand since yesterday morning which initially was tingling. No neck pain. Has inter mittent right eye pressure since September cataract repeat surgery, says normal IOP this past Friday. She was given steroid drops twice a day for the pressure sensation. She was told to get Systane artificial tears but has not obtained them yet. Has trouble opening jars for past year, not dropping things. Echocardiogram was not done with bubbles. Has a defibrillator implanted July 2017. Past History Past Medical History: atrial fib, diabetes (borderline), hypertension. 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 denies: smoking (stopped 10 years ago), prescription drug abuse, IV drug use Family history: diabetes (mother and sister), hypertension (mother and sister), stroke (mother), other (mother has had seizures in the past) Medications and Allergies Allergies Allergy/AdvReac Type Severity Reaction Status Date / Time No Known Allergies Allergy Verified 05/14/18 14:03 Home Medications Medication Instructions Recorded Confirmed Last Taken Type Ergocalciferol [Vitamin D2] 1 cap PO QWEEK 04/09/17 05/15/18 10/21/17 History Metformin HCl 500 mg PO BID 04/09/17 05/15/18 10/22/17 History Ferrous Sulfate [Feosol 325 MG tab] 325 mg PO BID #60 tablet 07/11/17 05/15/18 10/22/17 Rx Gabapentin [Neurontin] 100 mg PO BID #60 capsule 07/11/17 05/15/18 10/22/17 Rx Lisinopril [Zestril TAB] 20 mg PO QDAY #30 tablet 07/11/17 05/15/18 10/23/17 07:00 Rx Simvastatin (Nf) [Zocor TAB] 20 mg PO QHS #30 tablet 07/11/17 05/15/18 10/22/17 Rx amLODIPine [Norvasc] 5 mg PO DAILY #30 tablet 07/11/17 05/15/18 10/22/17 Rx Digoxin [Lanoxin] 0.125 mg PO DAILY 08/07/17 05/15/18 10/22/17 History Furosemide [Lasix TAB] 20 mg PO BID 08/07/17 05/15/18 10/22/17 History Spironolactone [Aldactone] 25 mg PO QDAY 08/07/17 05/15/18 10/22/17 History Warfarin Sodium [Jantoven] 5 mg PO DAILY 08/07/17 05/15/18 10/22/17 History Carvedilol [Coreg] 6.25 mg PO BID 05/15/18 05/15/18 Unknown History Active Meds: Active Medications Acetaminophen (Tylenol) 650 mg PO Q4H PRN PRN Reason: Pain, Mild (1-3) Amlodipine Besylate (Norvasc) 5 mg PO DAILY [facility] Last Admin: 05/15/18 13:17 Dose: Not Given Documented by: Aspirin (Baby Aspirin) 81 mg PO QDAY [facility] Last Admin: 05/15/18 13:05 Dose: 81 mg Documented by: Bisacodyl (Dulcolax) 10 mg OK QDAY PRN PRN Reason: Constipation Carvedilol (Coreg) 6.25 mg PO BID [facility] Last Admin: 05/15/18 13:04 Dose: 6.25 mg Documented by: Dextrose (D50w (25gm) Syringe) 50 ml IV PRN PRN PRN Reason: Hypoglycemia Digoxin (Lanoxin) 0.125 mg PO DAILY@1700 [facility] Ergocalciferol (Vitamin D2) 50,000 unit PO Fr [facility] Last Admin: 05/15/18 13:03 Dose: Not Given Documented by: Ferrous Sulfate (Feosol) 325 mg PO BID [facility] Last Admin: 05/15/18 13:03 Dose: 325 mg Documented by: Furosemide (Lasix) 20 mg PO BID [facility] Last Admin: 05/15/18 13:05 Dose: 20 mg Documented by: Gabapentin (Neurontin) 100 mg PO BID [facility] Last Admin: 05/15/18 13:04 Dose: 100 mg Documented by: Insulin Glargine (Lantus) 15 units SUB-Q BID [facility] Last Admin: 05/15/18 13:48 Dose: 15 units Documented by: Insulin Human Lispro (Humalog) 0 unit SUB-Q ACHS [facility]; Protocol Last Admin: 05/15/18 13:41 Dose: 4 unit Documented by: Lisinopril (Zestril) 20 mg PO QDAY@0800 [facility] Last Admin: 05/15/18 13:16 Dose: Not Given Documented by: Magnesium Hydroxide (Milk Of Magnesia) 30 ml PO Q4H PRN PRN Reason: Constipation Metoclopramide HCl (Reglan) 5 mg PO Q6H PRN PRN Reason: Nausea And Vomiting Ondansetron HCl (Zofran) 4 mg IV Q8H PRN PRN Reason: Nausea And Vomiting Pravastatin Sodium (Pravachol) 20 mg PO QHS JERED Sodium Chloride (Sodium Chloride Flush Syringe 10 Ml) 10 ml IV PRN PRN PRN Reason: LINE FLUSH Spironolactone (Aldactone) 25 mg PO QDAY [facility] Last Admin: 05/15/18 13:03 Dose: 25 mg Documented by: Warfarin Sodium (Coumadin) 2.5 mg PO DAILY@1700 [facility] Review of Systems All systems: negative (head pressure as noted. Gets dizzy described as lightheadedness if she stands up too quickly or moves her head too fast. Some snoring but no pauses, not napping, may doze off for a few seconds at a time, not sleepy driving, sleeps 8.5 hours interrupted by nocturia 2 but then he is rested though tired. No memory problems. Numbness of soles of feet at times.) Physical Examination - Vital Signs Vital Signs: Vital Signs Temp Pulse Resp BP Pulse Ox 97.7 F 89 18 119/65 98 05/14/18 14:17 05/14/18 14:17 05/14/18 14:17 05/14/18 14:17 05/14/18 14:17 - Physical Exam Narrative exam: General Appearance: well developed but overweight (per BMI) early 60s - [place] female in [facility]. HEENT: atraumatic, normocephalic; no bruits, 2+ Jossue without soreness or induration or enlargement, sclerae nonicteric. Oropharynx pink and moist. Neck: supple, no bruits. Heart: no murmur or extra sounds. Extremities: no clubbing, cyanosis or edema. Cannot feel posterior tibial or dorsalis pedis pulses on either side. Neurologic Exam: Mental Status: Awake, alert, oriented X 3, speech is clear, names pen and tip of pen, and abstracts well. Names President but not After School Teacher, serial 7's with multiple errors and gives 5+ 7= 13, no right-left confusion, gets 2 of 3 objects at 3 minutes, spells WORLD backwards correctly. Cranial Nerves: man full, no papilledema, SVPs present, left pupil is smaller at 1.5 mm and round and the right is irregular at about 2 mm greatest diameter but both react to light and to accommodation, extraocular movements are full without nystagmus or diplopia, facial sensation is intact to light touch and pinprick, enlarged left palpebral fissure but no Lou's, Robles is midline, palate rises symmetrically to phonation, shoulder shrug is 5 X 2, tongue protrudes midline. Cerebellar: finger to nose is intact but tandem is done with some sidestepping Sensory: intact to light touch, pinprick, and vibrations. Double simultaneous stimulation is intact. Special Tests: Tinel's is negative at the carpal and cubital tunnels and Guyon's canals bilaterally. Motor Exam Upper Extremities: no drift or pronation, Jim intact. Carbonation Equipment Tender are 5 X 2, tone is normal. No atrophy or fasciculations are noted visually. Motor Exam Hands: APB is 4- right and 4+ left without pain on either side, thenar eminences are diminished bilaterally, adductor and opponens pollicis are 5 bilaterally. No intrinsic atrophy and no fasciculations are noted visually. Motor Exam Lower Extremities: walks well on heels and toes but did not have her hop due to balance problems. Jim intact. Tone is normal. No atrophy or fasciculations are noted visually. Reflexes: Palmomental, snout and jaw jerk are negative. Triceps are 1, biceps are and brachioradialis are ? bilaterally. Ruthann's is negative bilaterally. Knee jerks are 1 and ankle jerks are trace to 1 bilaterally without clonus. Toes are downgoing bilaterally to Babinski testing. Results - Laboratory Findings CBC and BMP: 05/15/18 05:36 05/15/18 05:36 Abnormal Lab Findings: Abnormal Labs 05/14/18 05/14/18 05/14/18 14:50 14:50 14:50 MCH 26 L RDW 16.9 H Randolph % (Auto) 10.6 H PT 23.6 H INR 1.96 H APTT 42.6 H BUN 33 H Creatinine 1.4 H Glucose 306 H POC Glucose Total Creatine Kinase 160 H Urine WBC (Auto) U Epithel Cells (Auto) Digoxin 05/14/18 05/15/18 05/15/18 17:31 01:38 05:36 MCH 27 L RDW 16.6 H Randolph % (Auto) 11.9 H PT INR APTT BUN Creatinine Glucose POC Glucose Total Creatine Kinase 142 H Urine WBC (Auto) 41.0 H U Epithel Cells (Auto) 16.0 H Digoxin 05/15/18 05/15/18 05/15/18 05:36 05:36 09:46 MCH RDW [place] % (Auto) PT 26.4 H INR 2.25 H APTT 42.1 H BUN 32 H Creatinine Glucose 272 H POC Glucose Total Creatine Kinase Urine WBC (Auto) U Epithel Cells (Auto) Digoxin 0.3 L 05/15/18 13:01 MCH RDW Randolph % (Auto) PT INR APTT BUN Creatinine Glucose POC Glucose 189 H Total Creatine Kinase Urine WBC (Auto) U Epithel Cells (Auto) Digoxin Assessment and Plan Impression: 1. Paresthesias Plan: 1. Wrote out for her to take 200 mg B6 daily for 2 months then reduce to 100 mg a day for carpal tunnel syndrome. If not helping after 3 weeks, she is to stop the B6 and ask for a wrist splint on the left to wear at night, might need nerve conductions/EMGs if not better with splint. 2. If nerve conductions negative, could try to arrange brain MRI at [place] with aircraft engine technician, since they usually can do MRIs even with a defibrillator. I doubt that she has a lacunar stroke, especially with the longer history of difficulty opening jars as well as of course thenar atrophy bilaterally. 3. Ordered eye drops at her request. 4. No need for repeat CT scan, so I cancelled it. 55 minutes spent including discussion of use of vitamin B6 and extensive hand motor exam.
[2018-05-15] MEDS ORDERED: VITAMIN B-6 PO SCH (16:00)
[2018-05-15] MEDS ORDERED: LANOXIN PO SCH (17:00)
[2018-05-15] MEDS: COUMADIN PO SCH ×2 (17:48→17:49)
[2018-05-15] MEDS ORDERED: PRAVACHOL PO SCH ×2 (22:00)
[2018-05-16 06:36] LABS: INR 2.38 (0.87-1.13)
[2018-05-16 06:50] LABS: Chol/HDL Ratio 6.08 %
--- NOTE | 2018-05-16 09:21 | Progress Note ---
Assessment and Plan - Patient Problems (1) Nonischemic cardiomyopathy Current Visit: Yes Status: Acute Plan to address problem: She does have a history of a nonischemic cardiomyopathy, with a cardiac catheterization a year ago, showing no significant coronary disease with ejection fraction 20-25%. 6 months later, she had a single-chamber ICD implant. Her cardiac status is currently stable and asymptomatic on routine guideline directed medical therapy. Subjective Date of service: 05/16/18 Interval history: The patient looks and feels comfortable, no cardiac complaints. On this presentation, her complaints with headache, lower back pain and left arm numbness. She does have a history of a nonischemic cardiomyopathy, with a cardiac catheterization a year ago, showing no significant coronary disease with ejection fraction 20-25%. 6 months later, she had a single-chamber ICD implant. Her cardiac status is currently stable and asymptomatic on routine guideline directed medical therapy. Objective Vital Signs Temp Pulse Resp BP Pulse Ox 05/16/18 08:28 69 18 138/72 100 05/16/18 08:26 98.0 F 05/16/18 04:30 98.0 F 62 16 114/57 100 05/15/18 23:54 98.2 F 18 116/67 05/15/18 21:25 77 102/34 05/15/18 20:04 98.1 F 77 16 102/34 97 05/15/18 19:45 79 05/15/18 17:46 98.2 F 18 117/67 05/15/18 13:01 98.4 F 84 18 115/64 91 05/15/18 13:00 83 - Physical Examination General: Appears Well, No Apparent Distress HEENT: Positive: PERRL Neck: Positive: trachea midline Cardiac: Positive: Reg Rate and Rhythm Lungs: Positive: clear to auscultation Neuro: Positive: Grossly Intact Abdomen: Positive: Soft Skin: Positive: Clear Extremities: Absent: edema - Labs and Meds Coagulation 05/16/18 Range/Units 05:54 PT 27.6 H (12.2-14.9) Sec. INR 2.38 H (0.87-1.13) Lipids 05/16/18 Range/Units 05:54 Triglycerides 205 H (2-149) mg/dL Cholesterol 207 H (50-199) mg/dL HDL Cholesterol 34 L (40-59) mg/dL Cholesterol/HDL Ratio 6.08 %
[2018-05-16] MEDS: NEURONTIN PO SCH (09:31)
[2018-05-16] MEDS: ALDACTONE PO SCH (09:31)
[2018-05-16] MEDS: NORVASC PO SCH (09:32)
[2018-05-16] MEDS: FEOSOL PO SCH (09:32)
[2018-05-16] MEDS: LASIX PO SCH (09:32)
[2018-05-16] MEDS: BABY ASPIRIN PO SCH (09:33)
[2018-05-16] MEDS: ZESTRIL PO SCH (09:48)
[2018-05-16] MEDS: HumaLOG SUB-Q SCH ×2 (09:55→13:12)
[2018-05-16] MEDS: LANTUS SUB-Q SCH (09:55)
[2018-05-16] MEDS: COREG PO SCH (10:03)
[2018-05-16 12:09] VITALS: BP 99/59
--- NOTE | 2018-05-17 14:47 | Discharge Summary ---
Providers - Providers Date of Admission: 05/14/18 23:01 Date of discharge: 05/16/18 Attending physician: SHA MAGUIRE 05/15/18 01:19 Occupational Therapy Evaluate and Treat [CONS] Routine Comment: Reason For Exam: Neuro deficits Physical Therapy Evaluation and Treat [CONS] Routine Comment: Reason For Exam: Neuro deficits 05/15/18 01:22 Consult to Physician [CONS] Routine Comment: Consulting Provider: LANI APONTE Physician Instructions: Reason For Exam: numb lt hand 05/15/18 01:38 Consult to Physician [CONS] Routine Comment: Consulting Provider: DANG JHA Physician Instructions: Reason For Exam: cp [facility] Reason for admission: Left hand Paresthesia, rule out acute stroke, Hyperglycemia, chest pain Condition: Stable Pertinent studies: -Carotid Doppler showed less than 50% stenosis -Echocardiogram showed EF of 45-50% with diastolic dysfunction -CT head: negative Hospital course: Left hand Paresthesia, rule out acute stroke Atypical chest pain, R/O ACS Non-ischemic cardiomyopathy status post AICD Paroxysmal atrial fibrillation on oral anticoagulation DM2 with hyperglycemia Hospital course: Patient was admitted and placed on stroke and chest pain pathway. CT head done was negative, however she could not get an MRI because of history of defibrillator placement. For the chest pain, serial troponin levels were negative. In addition, she was placed on insulin regimen for the hyperglycemia. For her other comorbidities, she was continued on her home medications. Thereafter she was evaluated by the neurologist, who determined that the paresthesia is probably due to carpal tunnel syndrome. Vitamin B6 was recommended. Patient was also evaluated by the cardiology and no further investigative testing was recommended. Of note, patient's urinalysis showed elevated WBC level, however she was asymptomatic and she did not receive treatment for UTI. She was monitored without any adverse events and was later cleared by the neurologist for discharge with clinic follow-up. On discharge, she was prescribed vitamin B6 to take for 2 months, but was instructed to discontinue it if no improvement after 3 weeks as recommended by the neurologist. Disposition: TO HOME OR SELFCARE Time spent for discharge: 30 minutes Core Measure Documentation - Palliative Care Palliative Care/ Comfort Measures: Not Applicable - Core Measures Any of the following diagnoses?: none Exam - Constitutional Vitals: Temp Pulse Resp BP Pulse Ox 98.0 F 69 18 99/59 100 05/16/18 12:09 05/16/18 12:05 05/16/18 12:05 05/16/18 12:05 05/16/18 12:05 General appearance: Present: no acute distress, well-nourished - EENT Eyes: Present: PERRL, EOM intact ENT: hearing intact, clear oral mucosa - Neck Neck: Present: supple, normal ROM - Respiratory Respiratory effort: normal Respiratory: bilateral: CTA - Cardiovascular Rhythm: regular Heart Sounds: Present: S1 & S2. Absent: rub, click - Extremities Extremities: No edema - Abdominal General gastrointestinal: Present: soft, non-tender, non-distended, normal bowel sounds - Integumentary Integumentary: Present: clear, warm, dry - Musculoskeletal Musculoskeletal: gait normal, strength equal bilaterally - Psychiatric Psychiatric: appropriate mood/affect, intact judgment & insight - Neurologic Neurologic: CNII-XII intact, moves all extremities Plan Follow up with: LUBA FISHER MD [Primary Care Provider] - 3-5 Days Forms: Warfarin Discharge Instruction Prescriptions: Pyridoxine HCl (Vitamin B6) [Vitamin B-6] 200 mg PO DAILY #60 tablet
== END 2018-05-16 14:23 | disposition home or self-care (01) | DRG 74 ==
LOC: ED 14:01 → 4A 23:01
PROVIDERS: ADMIT Internal Medicine; ATTEND Internal Medicine
DX: G56.02 Carpal tunnel syndrome, left upper limb (principal); N39.0 Urinary tract infection, site not specified; I42.8 Other cardiomyopathies; I48.0 Paroxysmal atrial fibrillation; R20.2 Paresthesia of skin; R07.89 Other chest pain; E11.65 Type 2 diabetes mellitus with hyperglycemia; F10.10 Alcohol abuse, uncomplicated; I11.0 Hypertensive heart disease with heart failure; I50.9 Heart failure, unspecified; I25.10 Atherosclerotic heart disease of native coronary artery without angina pectoris; M54.5 Low back pain; Z95.810 Presence of automatic (implantable) cardiac defibrillator; Z79.01 Long term (current) use of anticoagulants; Z98.41 Cataract extraction status, right eye; Z90.710 Acquired absence of both cervix and uterus; Z83.3 Family history of diabetes mellitus; Z82.49 Family history of ischemic heart disease and other diseases of the circulatory system; Z82.3 Family history of stroke; Z79.899 Other long term (current) drug therapy; Z87.01 Personal history of pneumonia (recurrent)
CPT/HCPCS: 36415; 70450; 71045; 80048; 80053; 80061; 80162; 81001; 82550; 82553; 82962; 84484; 85025; 85610; 85730; 93005; 93010; 93306; 93880; G0378; A9270-GY; J1815